=== PATIENT | male | born 1950 | race Caucasian/White ===

== ENCOUNTER 2021-01-26 08:13 | Inpatient (IN) ==
[2021-01-26 08:03] LABS: ABG ALLEN TEST POS; ABG HCO3 21.3 mmol/L (22-26)
[2021-01-26 08:09] LABS: BASOPHILS % (AUTO) 0.5 % (0.2-1.0); HEMATOCRIT 52.9 % (42.0-54.0); HEMOGLOBIN 18.6 g/dL (13.5-18.0); LYMPHOCYTES # (AUTO) 0.7 X10^3/uL (1.3-2.9); LYMPHOCYTES % (AUTO) 8.4 % (21.0-51.0); MEAN CORPUSCULAR HEMOGLOBIN 31.6 pg (27.0-34.0); MEAN CORPUSCULAR HGB CONC 35.1 g/dL (33.0-35.0); MEAN CORPUSCULAR VOLUME 90.1 fL (80.0-100.0); MEAN PLATELET VOLUME 9.2 fL (7.4-11.0); MONOCYTES % (AUTO) 11.6 % (0.0-13.0); NEUTROPHILS # (AUTO) 6.9 x10^3/uL (2.2-4.8); NEUTROPHILS % (AUTO) 79.5 % (42.0-75.0); PLATELET COUNT 118 X10^3/uL (150.0-450.0); RED BLOOD COUNT 5.87 X10^6/uL (4.7-6.0); RED CELL DISTRIBUTION WIDTH 16.1 % (11.6-16.5); WHITE BLOOD COUNT 8.6 X10^3/uL (3.6-10.0)
[~2021-01-26 08:13] MED LIST: REGEN-COV VIAL 10 ML, DRUG FILTER EXTENSION SET * 1 EA in NS 100 ML IV 100 ML IV ONE; SOLU-Medrol 125 MG VIAL IVP ONE; TYLENOL 325 MG TAB PO ONE
[2021-01-26] MEDS ORDERED: NS 1000 ML 1,000 ML IV ONE ×2 (08:17→10:05)
--- NOTE | 2021-01-26 08:26 | DR.GENAD ---
HPI Time Seen Time Seen by Provider: 01/26/21 08:15 PCP Primary Care Physician: kayla hoffman ARCHITECTURAL EXAMINER Complaint/Symptoms Chief Complaint Doctors Comments: 70 y/o male presented for Covid infusion, had difficulty getting out of the car. Per nursing staff, was cyanotic, in severe respiratory distress. Brought into ER, placed on NRB. Doing better, awake and alert. Initial pulse ox in the 50s on RA. Has had covid x 5 days or so. Has had cough, slight productive, having fever/chills/aches. Has been having diarrhea. No home O2. Did receive one vaccine at beginning of the month. Denies syncope, chest pain, N/V. COVID-19 Coronavirus risk:travel/contact w/high risk person: Yes Has patient experienced Coronavirus symptoms: Yes Nurses notes reviewed Nurses Notes Review: Yes Source History Provided: Patient Mode of Arrival Mode of Arrival: Wheelchair Timing Came on: Gradually Severity Severity: Severe Modifying Factors Worsens:: exertion Improves:: oxygen PMH Travel Risk Coronavirus risk:travel/contact w/high risk person: Yes ROS Review of Systems Constitutional: Chills, Fever, Malaise and Weakness Eyes: No Symptoms Reported ENTM: No Symptoms Reported Respiratoy: Productive Cough and Short of Breath Cardiovascular: No Symptoms Reported Gastrointestinal/Abdominal: Diarrhea Genitourinary: No Symptoms Reported Neurological: Weakness and Dizziness Musculoskeletal: Muscle Pain Integumentary: No Symptoms Reported Hematologic/Lymphatic: No Symptoms Reported Endocrine: No Symptoms Reported Psychiatric: No Symptoms Reported All Other Systems: Reviewed and Negative PE Vital Signs Vitals: Temperature 98.4 F Pulse Rate 85 Respiratory Rate 38 Blood Pressure 117/84 O2 Sat by Pulse Oximetry 95 General Limitations: No Limitations General Appearance: Alert and In Distress Head Head Exam: Normal Inspection Eyes Eye exam: Normal Appearance ENT ENT Exam: Normal Exam Neck Neck Exam: Normal Inspection and Full ROM Chest Chest Inspection: Normal Inspection Respiratory Respiratory Exam: Respiratory Distress and Other (decreased breath sounds at the bases) Cardiovascular Cardiovascular Exam: Regular Rate, Normal Rhythm and Normal Heart Sounds Abdominal Exam Abdominal Exam: Normal Inspection, Normal Bowel Sounds and Soft; negative Tenderness Extremities Extremities Exam: Normal Inspection, Full ROM and Tenderness Back Back Exam: Normal Inspection Neurologic Neurological Exam: Alert, Oriented X3 and CN II-XII Intact Psychiatric Psychiatric Exam: Normal Affect Skin Skin Exam: Warm and Dry COURSE Treatment Treatment: Pt doing better on O2 therapy, will change to high flow. CXR shows bilateral pneumonia changes. Labs overall acceptable, except for low pO2, 64 on 100%. Pt presented to the covering hospitalist, Dr. Wlikins, accepts the admission. Given solumedrol, azithromycin IV here. ROR Labs Reviewed Laboratory Results Reviewed?: Yes Result Diagrams: 01/26/21 07:56 01/26/21 07:56 Laboratory: WBC 8.6 X10^3/uL (3.6-10.0) 01/26/21 07:56 RBC 5.87 X10^6/uL (4.7-6.0) 01/26/21 07:56 Hgb 18.6 g/dL (13.5-18.0) H 01/26/21 07:56 Hct 52.9 % (42.0-54.0) 01/26/21 07:56 MCV 90.1 fL (80.0-100.0) 01/26/21 07:56 MCH 31.6 pg (27.0-34.0) 01/26/21 07:56 MCHC 35.1 g/dL (33.0-35.0) H 01/26/21 07:56 RDW 16.1 % (11.6-16.5) 01/26/21 07:56 Plt Count 118 X10^3/uL (150.0-450.0) L 01/26/21 07:56 MPV 9.2 fL (7.4-11.0) 01/26/21 07:56 Neut % (Auto) 79.5 % (42.0-75.0) H 01/26/21 07:56 Lymph % (Auto) 8.4 % (21.0-51.0) L 01/26/21 07:56 [place] % (Auto) 11.6 % (0.0-13.0) 01/26/21 07:56 Eos % (Auto) 0.0 % (0.9-2.9) L 01/26/21 07:56 Baso % (Auto) 0.5 % (0.2-1.0) 01/26/21 07:56 Neut # (Auto) 6.9 x10^3/uL (2.2-4.8) H 01/26/21 07:56 Lymph # (Auto) 0.7 X10^3/uL (1.3-2.9) L 01/26/21 07:56 [place] # (Auto) 1.0 x10^3/uL (0.3-0.8) H 01/26/21 07:56 Eos # (Auto) 0.0 x10^3/uL (0.0-0.2) 01/26/21 07:56 Baso # (Auto) 0.0 X10^3/uL (0.0-0.1) 01/26/21 07:56 Absolute Nucleated RBC 0.5 /100WBC 01/26/21 07:56 D-Dimer 0.59 ug/ml (0.0-0.57) H* 01/26/21 07:56 Sample Site Lr 01/26/21 07:59 ABG pH 7.490 (7.35-7.45) H 01/26/21 07:59 ABG pCO2 28.0 mmHg (35.0-45.0) L 01/26/21 07:59 ABG pO2 64.0 mmHg (80.0-100.0) L 01/26/21 07:59 ABG HCO3 21.3 mmol/L (22-26) L 01/26/21 07:59 ABG O2 Saturation 94.0 % (90-100) 01/26/21 07:59 ABG Base Excess -1.0 mmol/L (-2.0-2.0) 01/26/21 07:59 Francis Test Pos 01/26/21 07:59 A-a Gradient 614.0 mmHg 01/26/21 07:59 FiO2 100.0 01/26/21 07:59 Blood Gas Comments Kimberley well. sd 01/26/21 07:59 Sodium 136 mmol/L (136-145) 01/26/21 07:56 Corrected Sodium 137 mmol/L (136-145) 01/26/21 07:56 Potassium 4.4 mmol/L (3.5-5.1) 01/26/21 07:56 Chloride 100 mmol/L (98-107) 01/26/21 07:56 Carbon Dioxide 25.4 mmol/L (21-32) 01/26/21 07:56 BUN 41 mg/dL (7-18) H 01/26/21 07:56 Creatinine 2.01 mg/dL (0.70-1.30) H 01/26/21 07:56 Est GFR (MDRD) Af Amer 43 (>60) L 01/26/21 07:56 Est GFR (MDRD) Non-Af 35 (>60) L 01/26/21 07:56 Glucose 132 mg/dL (65-99) H 01/26/21 07:56 Lactic Acid 3.9 mmol/L (0.4-2.0) H 01/26/21 08:37 Calcium 8.6 mg/dL (8.5-10.1) 01/26/21 07:56 Corrected Calcium 9.5 mg/dL (8.5-10.1) 01/26/21 07:56 Ferritin 3928 ng/mL (26-388) H 01/26/21 07:56 Total Bilirubin 1.20 mg/dL (0.2-1.0) H 01/26/21 07:56 AST 110 Units/L (15-37) H 01/26/21 07:56 ALT 54 Units/L (12-78) 01/26/21 07:56 Alkaline Phosphatase 58 Units/L (46-116) 01/26/21 07:56 Creatine Kinase 432 Units/L (39-308) H 01/26/21 08:37 CK-MB (CK-2) 1.7 ng/mL (0-4.0) 01/26/21 08:37 CK/CKMB % Calc 0.4 % (<4) 01/26/21 08:37 Troponin I < 0.02 ng/mL (0-1.5) 01/26/21 08:37 C-Reactive Protein 91.10 mg/L (0-3.0) H 01/26/21 07:56 B-Natriuretic Peptide 12.5 pg/mL (0-79) 01/26/21 07:56 Total Protein 6.8 g/dL (6.4-8.2) 01/26/21 07:56 Albumin 2.9 g/dL (3.4-5.0) L 01/26/21 07:56 Globulin 3.9 g/dL (2.5-4.5) 01/26/21 07:56 Albumin/Globulin Ratio 0.7 Ratio (1.1-2.1) L 01/26/21 07:56 XRAY XRAY Interpreted by: Both X-ray Results: + bilateral increased opacifications Opioid Opioid Risk Tool Age (Marcelo box if 16-45): No History of Preadolescent Sexual Abuse: No Total: 0 Total Score Risk Category: Low Risk Copyright: Nirmal HINDS predicting aberrant behaviors Diagnosis Discharge Problem: Pneumonia due to COVID-19 virus, Hypoxia Instructions Forms: Precautions for COVID19 [facility] Regen-Cov Social Distancing
[2021-01-26 08:30] LABS: ALBUMIN 2.9 g/dL (3.4-5.0); CALCIUM 8.6 mg/dL (8.5-10.1); CARBON DIOXIDE 25.4 mmol/L (21-32); COR CA(FOR HYPOALB) 9.5 mg/dL (8.5-10.1); CREATININE 2.01 mg/dL (0.70-1.30); TOTAL PROTEIN 6.8 g/dL (6.4-8.2)
--- NOTE | 2021-01-26 08:46 | RAD ---
HISTORYCOVID/ O2 50 ON ROOM AIRSTUDYCHEST, 1 VIEWCOMPARISONNoneFINDINGSThere are focal areas of opacity mostly involving the right lung but also in the lower lateral left lung. The distribution suggest bronchopneumonia.No pleural effusion or pneumothorax.Heart size is normal.Bones are unremarkable.EKG leads are noted.IMPRESSION1. Findings suggesting bronchopneumoniaElectronically signed by: Sang Flores (Jan 26, 2021 08:44:36)
[2021-01-26] MEDS ORDERED: NS 1000 ML 1,000 ML ONE ×2 (09:05→10:09)
[2021-01-26 09:29] LABS: CKMB % 0.4 % (<4); CREATINE KINASE 432 Units/L (39-308); CREATINE KINASE MB 1.7 ng/mL (0-4.0); TROPONIN I < 0.02 ng/mL (0-1.5)
[2021-01-26 09:38] LABS: LACTIC ACID 3.9 mmol/L (0.4-2.0)
[2021-01-26] MEDS ORDERED: ZITHROMAX INJ 500 MG VIAL 500 MG in NS 250 ML IV 250 ML IV SCH (10:06)
[2021-01-26] MEDS ORDERED: SOLU-Medrol 125 MG VIAL IVP ONE (10:06)
[2021-01-26] MEDS ORDERED: ZITHROMAX INJ 500 MG VIAL IV ONE (10:22)
[2021-01-26] MEDS ORDERED: NS 250 ML IV 250 ML IV ONE (10:23)
[2021-01-26] MEDS ORDERED: REMDESIVIR 200 MG in NS 250 ML IV 250 ML IV ONE (10:27)
[2021-01-26] MEDS: ZITHROMAX INJ 500 MG VIAL 500 MG in NS 250 ML IV 250 ML IV SCH (11:30)
[2021-01-26] MEDS: NS 1000 ML 1,000 ML IV SCH ×2 (13:00→21:00)
[2021-01-26] MEDS: SOLU-Medrol 40 MG VIAL IVP SCH ×2 (15:00→21:00)
[2021-01-26] MEDS: ASCORBIC ACID INJ MULTI-DOSE VIAL 1,500 MG in NS 100 ML IV 100 ML IV SCH ×2 (15:31→21:00)
[2021-01-26 16:19] VITALS: BMI 28.8
[2021-01-26] MEDS ORDERED: ZINC SULFATE PO SCH (21:00)
[2021-01-26] MEDS: PEPCID TAB 40 MG PO SCH (21:00)
[2021-01-26] MEDS: ROBITUSSIN DM PO PRN (21:00)
[2021-01-26] MEDS: LOVENOX INJ 30 MG SYR SC SCH (21:00)
[2021-01-26] MEDS: RESTORIL CAP 15 MG PO PRN (22:00)
[2021-01-26] MEDS: BROVANA IN SCH (22:15)
[2021-01-26] MEDS: PULMICORT NEB TX 0.5 MG NEB SCH (22:15)
[2021-01-27] MEDS: ASCORBIC ACID INJ MULTI-DOSE VIAL 1,500 MG in NS 100 ML IV 100 ML IV SCH ×4 (03:22→20:32)
[2021-01-27] MEDS: SOLU-Medrol 40 MG VIAL IVP SCH ×3 (05:29→21:16)
[2021-01-27 06:29] LABS: BASOPHILS % (AUTO) 0.2 % (0.2-1.0); HEMATOCRIT 46.8 % (42.0-54.0); HEMOGLOBIN 16.3 g/dL (13.5-18.0); LYMPHOCYTES # (AUTO) 0.5 X10^3/uL (1.3-2.9); MEAN CORPUSCULAR HEMOGLOBIN 31.3 pg (27.0-34.0); MEAN CORPUSCULAR HGB CONC 34.7 g/dL (33.0-35.0); MEAN CORPUSCULAR VOLUME 90.2 fL (80.0-100.0); MEAN PLATELET VOLUME 9.2 fL (7.4-11.0); MONOCYTES # (AUTO) 0.3 x10^3/uL (0.3-0.8); MONOCYTES % (AUTO) 5.7 % (0.0-13.0); NEUTROPHILS # (AUTO) 3.8 x10^3/uL (2.2-4.8); NEUTROPHILS % (AUTO) 84.1 % (42.0-75.0); PLATELET COUNT 104 X10^3/uL (150.0-450.0); RED BLOOD COUNT 5.19 X10^6/uL (4.7-6.0); RED CELL DISTRIBUTION WIDTH 16.3 % (11.6-16.5); WHITE BLOOD COUNT 4.5 X10^3/uL (3.6-10.0)
[2021-01-27 06:29] LABS: ABG BASE EXCESS 0.1 mmol/L (-2.0-2.0); ABG HCO3 24.7 mmol/L (22-26)
[2021-01-27 06:32] LABS: ABG ALLEN TEST POS
[2021-01-27 06:39] LABS: ALANINE AMINOTRANSFERASE 51 Units/L (12-78); ALBUMIN 2.4 g/dL (3.4-5.0); ALKALINE PHOSPHATASE 49 Units/L (46-116); ASPARTATE AMINO TRANSFERASE 94 Units/L (15-37); BLOOD UREA NITROGEN 32 mg/dL (7-18); CALCIUM 7.9 mg/dL (8.5-10.1); CARBON DIOXIDE 28.9 mmol/L (21-32); CHLORIDE 103 mmol/L (98-107); COR CA(FOR HYPOALB) 9.2 mg/dL (8.5-10.1); COR NA(FOR HYPERGLY) 139 mmol/L (136-145); CREATININE 1.16 mg/dL (0.70-1.30); SODIUM 138 mmol/L (136-145); TOTAL PROTEIN 5.9 g/dL (6.4-8.2); eGFR NON BLACK RACES > 60 (>60)
[2021-01-27 06:58] LABS: PLATELET MORPHOLOGY COMMENT NORMAL (NORMAL)
[2021-01-27] MEDS ORDERED: REMDESIVIR IV ONE (07:45)
[2021-01-27] MEDS ORDERED: ZINC SULFATE ONE (07:46)
[2021-01-27] MEDS ORDERED: TRICOR TAB 160 MG ONE (07:46)
[2021-01-27] MEDS ORDERED: VITAMIN D3 125 mcg (5,000 UNITS) ONE (07:46)
[2021-01-27] MEDS ORDERED: ZITHROMAX INJ 500 MG VIAL IV ONE (07:46)
--- NOTE | 2021-01-27 08:03 | RAD ---
HISTORYPNEUMONIASTUDYCHEST, 1 [id number]/09/2021FINDINGSSubtle abnormal opacity in the right lung and probably left perihilar region could be pneumonia. There may be a slight improvement from yesterday.Lungs are better inflated than previously.No pleural effusion or pneumothorax.Heart size is normal.Bones are unremarkable.EKG leads are noted.IMPRESSION1. Improved aeration2. Improved pneumoniaElectronically signed by: Sang Flores (Jan 27, 2021 08:01:56)
[2021-01-27] MEDS: BROVANA IN SCH ×2 (08:15→21:11)
[2021-01-27] MEDS: PULMICORT NEB TX 0.5 MG NEB SCH ×2 (08:15→21:11)
[2021-01-27] MEDS ORDERED: VITAMIN D (1.25MG) PO SCH (09:00)
[2021-01-27] MEDS ORDERED: VITAMIN A PO SCH (09:00)
[2021-01-27] MEDS: LOVENOX INJ 30 MG SYR SC SCH (09:26)
[2021-01-27] MEDS: REMDESIVIR 100 MG in NS 100 ML IV + SPIKE MINIBAG* 120 ML IV SCH (09:27)
[2021-01-27] MEDS: PEPCID TAB 40 MG PO SCH ×2 (09:27→20:32)
[2021-01-27] MEDS: ROBITUSSIN DM PO PRN (09:28)
[2021-01-27] MEDS: TRICOR TAB 160 MG PO SCH (09:28)
[2021-01-27] MEDS: ZITHROMAX INJ 500 MG VIAL 500 MG in NS 250 ML IV 250 ML IV SCH (09:33)
[2021-01-27] MEDS: NS 1000 ML 1,000 ML IV SCH (10:44)
[2021-01-27] MEDS ORDERED: TUSSIONEX PENNKINETIC SUSP PO ONE (10:58)
[2021-01-27] MEDS ORDERED: LEVSIN/MAALOX/LIDOC VISC PO ONE (10:59)
[2021-01-27] MEDS ORDERED: PHARMACY CONSULT - LOVENOX XX SCH (11:00)
[2021-01-27 12:11] LABS: CKMB % 1.7 % (<4); CREATINE KINASE 286 Units/L (39-308); TROPONIN I < 0.02 ng/mL (0-1.5)
[2021-01-27 12:16] LABS: CREATINE KINASE MB 4.9 ng/mL (0-4.0)
--- NOTE | 2021-01-27 14:47 | DR.H&P ---
H&P - History & Physical for Day of: H&P Date: 01/26/21 - Chief Complaint Chief Complaint: SOB, COVID 19 - History of Present Illness History of Present Illness: 70 y/o male presented for Covid infusion, had difficulty getting out of the car. Per nursing staff, was cyanotic, in severe respiratory distress. Brought into ER, placed on NRB. Doing better, awake and alert. Initial pulse ox in the 50s on RA. Has had covid x 5 days or so. Has had cough, slight productive, having fever/chills/aches. Has been having diarrhea. No home O2. Did receive one vaccine at beginning of the month. Denies syncope, chest pain, N/V. - Past Medical History Past Medical History: Arthritis, Hypertension - Social History Does patient currently use any type of tobacco product: No Have you used tobacco products in the last 12 months: No Type of Tobacco Use: None Does any household member use tobacco: No Alcohol Use: None Drug Use: None - Medications Home Medications: No Known Drug Allergies Allergy (Verified 01/26/21 08:28) CONTINUE taking the following medications atorvastatin 20 mg PO HS 01/26/21 [History] doxycycline hyclate 100 mg PO BID 01/26/21 [History] eszopiclone 3 mg PO HS 01/26/21 [History] folic acid 1 mg PO DAILY 01/26/21 [History] methotrexate sodium 15 mg PO WEEKLY 01/26/21 [History] ondansetron HCl 4 mg PO Q6H PRN 01/26/21 [History] pantoprazole 40 mg PO DAILY 01/26/21 [History] prednisone 5 mg PO DAILY PRN 01/26/21 [History] ropinirole 2 mg PO HS 01/26/21 [History] tramadol 50 mg PO BID PRN 01/26/21 [History] - Review of Systems Constitutional: Weakness Eyes: No Symptoms Reported ENT: No Symptoms Reported Respiratory: Cough, Shortness of Breath, SOB with Excertion Cardiovascular: Chest Pain Gastrointestinal: Nausea, Vomiting, Diarrhea Genitourinary: No Symptoms Reported Musculoskeletal: No Symptoms Reported Skin: No Symptoms Reported Neurological: No Symptoms Reported - Physical Exam Vital Signs: Temperature 97.0 F Pulse Rate [Right Brachial] 62 Pulse Rate 84 Respiratory Rate 20 Blood Pressure [Right Arm] 125/70 Blood Pressure 105/66 O2 Sat by Pulse Oximetry 95 Oriented: Normal Eyes: Normal Ear: Normal Nose: Normal Throat: Normal Respiratory: RML Diminished, RLL Diminished, LML Diminished, LLL Diminished Cardiovascular: Normal. negative: Edema : Normal Auscultation: Bowel Sounds: Normal Palpation: Normal Tenderness: Normal Skin: Decreased Turgur Musculoskeletal: Back:Lumbar Psychiatric: Anxiety Affect: Anxious Speech Pattern: Clear, Appropriate - Assessment/Plan (1) Pneumonia due to COVID-19 virus Status: Acute Plan: ADMIT, SUPPLMENTAL O2. IV ATBX, REMDESIVIR, SOLU MEDROL. IV HYDRATION. STRICT I&OS, CARDIAC MONITORING. AM, ABG, CXR (2) Hypoxia Status: Acute - Allergies Allergies/Adverse Reactions: Allergies Allergy/AdvReac Type Severity Reaction Status Date / Time No Known Drug Allergies Allergy Verified 01/26/21 08:28
[2021-01-27 14:54] LABS: ABG BASE EXCESS 1.1 mmol/L (-2.0-2.0); ABG HCO3 25.1 mmol/L (22-26)
[2021-01-27] MEDS: REQUIP PO SCH (20:32)
[2021-01-27] MEDS: LIPITOR TAB 20 MG PO SCH (20:32)
[2021-01-27] MEDS: LOVENOX INJ 100 MG SYR SC SCH (20:32)
[2021-01-27] MEDS: RESTORIL CAP 15 MG PO PRN (20:45)
[2021-01-27] MEDS ORDERED: NS 100 ML IV 100 ML ONE (22:18)
--- NOTE | 2021-01-27 23:26 | CT ---
HISTORYHYPOXIA, COVID+ INCREASED SOBSTUDYCTA CHESTCOMPARISONChest radiograph 01/27/2021TECHNIQUEMultiple axial images of the chest were obtained from the thoracic inlet to the upper abdomen after the administration of IV contrast. 3D reconstructions utilizing axial MIPS imaging was performed and reviewed. Dose reduction techniques including Automated Exposure Control (AEC) and adjustment of mA and kV were utilized.FINDINGSThe mediastinum does not demonstrate significant pathological lymphadenopathy. There is no paracardial effusion observed. The thoracic aorta is normal in its contour without evidence for aneurysmal dilatation. The central pulmonary arterial system does not demonstrate central filling defects to suggest pulmonary emboli.Evaluation of the lung parenchyma demonstrates marked emphysematous changes throughout the lungs. Patchy parenchymal opacities within both lower lobes. There is extensive pneumomediastinum and subcutaneous emphysema involving the anterior chest supraclavicular regions and base of the neck. There is a small right and moderate-sized left pneumothorax.. No pulmonary nodule or mass can be identified. The bony thorax is unremarkable in its appearance . The visualized portions of the upper abdomen are grossly unremarkable .IMPRESSIONUnremarkable CTA of the thoracic aorta and pulmonary arteries.Small right and moderate-sized left pneumothoraces. Extensive pneumomediastinum and subcutaneous emphysema, new from previous 01/27/2021.Marked emphysematous changes throughout the lungs with patchy parenchymal opacities within both lower lobes consistent with multifocal pneumonia.COMMUNICATIONS: These findings were discussed with patient's nurse at 11:22 p.m. 01/27/2021 by Radiology call manager product support.Electronically signed by: Eyal Davis (Jan 27, 2021 23:24:23)
[2021-01-28] MEDS: ASCORBIC ACID INJ MULTI-DOSE VIAL 1,500 MG in NS 100 ML IV 100 ML IV SCH ×4 (02:46→20:36)
[2021-01-28 05:00] LABS: ABG ALLEN TEST POS; ABG HCO3 26.5 mmol/L (22-26)
[2021-01-28] MEDS: SOLU-Medrol 40 MG VIAL IVP SCH ×3 (05:12→21:00)
[2021-01-28] MEDS: NS 1000 ML 1,000 ML IV SCH ×2 (05:44→18:25)
[2021-01-28 06:38] LABS: BASOPHILS % (AUTO) 0.2 % (0.2-1.0); HEMATOCRIT 42.7 % (42.0-54.0); HEMOGLOBIN 14.7 g/dL (13.5-18.0); LYMPHOCYTES # (AUTO) 0.4 X10^3/uL (1.3-2.9); LYMPHOCYTES % (AUTO) 3.4 % (21.0-51.0); MEAN CORPUSCULAR HEMOGLOBIN 30.7 pg (27.0-34.0); MEAN CORPUSCULAR HGB CONC 34.4 g/dL (33.0-35.0); MEAN CORPUSCULAR VOLUME 89.4 fL (80.0-100.0); MEAN PLATELET VOLUME 10.2 fL (7.4-11.0); MONOCYTES # (AUTO) 0.6 x10^3/uL (0.3-0.8); MONOCYTES % (AUTO) 4.9 % (0.0-13.0); NEUTROPHILS # (AUTO) 10.8 x10^3/uL (2.2-4.8); NEUTROPHILS % (AUTO) 91.5 % (42.0-75.0); PLATELET COUNT 141 X10^3/uL (150.0-450.0); RED BLOOD COUNT 4.78 X10^6/uL (4.7-6.0); RED CELL DISTRIBUTION WIDTH 16.2 % (11.6-16.5); WHITE BLOOD COUNT 11.8 X10^3/uL (3.6-10.0)
[2021-01-28 06:47] LABS: ALANINE AMINOTRANSFERASE 45 Units/L (12-78); ALBUMIN 2.3 g/dL (3.4-5.0); ALKALINE PHOSPHATASE 47 Units/L (46-116); ASPARTATE AMINO TRANSFERASE 71 Units/L (15-37); BLOOD UREA NITROGEN 31 mg/dL (7-18); CARBON DIOXIDE 28.1 mmol/L (21-32); CHLORIDE 106 mmol/L (98-107); COR CA(FOR HYPOALB) 9.4 mg/dL (8.5-10.1); COR NA(FOR HYPERGLY) 142 mmol/L (136-145); CREATININE 0.99 mg/dL (0.70-1.30); SODIUM 141 mmol/L (136-145); TOTAL PROTEIN 5.4 g/dL (6.4-8.2); eGFR NON BLACK RACES > 60 (>60)
--- NOTE | 2021-01-28 08:31 | RAD ---
HISTORYCOVID-19 pneumoniaSTUDYPortable AP [id number]/10/2021FINDINGSNormal heart size. Diffuse bilateral airspace disease has increased. There is now noted subcutaneous emphysema and pneumomediastinum. A small left apical pneumothorax is observed. No pleural fluid is seen.IMPRESSIONIncreasing bilateral pneumonia with interval appearance of subcutaneous emphysema, pneumomediastinum and small left pneumothorax.Electronically signed by: BERTHA TOLENTINO (Jan 28, 2021 08:29:48)
[2021-01-28 08:45] LABS: PLATELET MORPHOLOGY COMMENT NORMAL (NORMAL)
[2021-01-28] MEDS ORDERED: LASIX IVP ONE (09:14)
[2021-01-28] MEDS: PEPCID TAB 40 MG PO SCH ×2 (09:45→20:36)
[2021-01-28] MEDS: VITAMIN D3 125 mcg (5,000 UNITS) PO SCH (09:45)
[2021-01-28] MEDS: VITAMIN A PO SCH (09:45)
[2021-01-28] MEDS: LOVENOX INJ 100 MG SYR SC SCH ×2 (09:45→20:36)
[2021-01-28] MEDS: TRICOR TAB 160 MG PO SCH (09:45)
[2021-01-28] MEDS: BROVANA IN SCH ×2 (10:13→20:45)
[2021-01-28] MEDS: PULMICORT NEB TX 0.5 MG NEB SCH ×2 (10:13→20:45)
[2021-01-28] MEDS: ZITHROMAX INJ 500 MG VIAL 500 MG in NS 250 ML IV 250 ML IV SCH (10:45)
[2021-01-28] MEDS ORDERED: BENADRYL INJ 50 MG VIAL IVP ONE (12:24)
[2021-01-28] MEDS: REMDESIVIR 100 MG in NS 100 ML IV + SPIKE MINIBAG* 120 ML IV SCH (12:45)
[2021-01-28] MEDS: ULTRAM PO PRN ×3 (12:46→20:39)
--- NOTE | 2021-01-28 15:13 | RAD ---
EXAM: CHEST X-RAYHISTORY: Follow-up pneumonia.TECHNIQUE: AP chest x-ray dated January 28, 2021 at 1:04 PM.COMPARISON: CXR dated January 28, 2021 at 5:30 AM.FINDINGS:There is interval development of an approximately 15% right pneumothorax. No pleural effusion is seen. There is extensive stable pneumomediastinum, soft tissue neck emphysema, and soft tissue chest emphysema which may represent air leak; DDx includes sequela of a perforated viscus (such as the esophagus or trachea, but cannot rule out infectious process with gas producing organism in the appropriate clinical setting. Clinical correlation is advised.There is stable appearance of diffuse bilateral, especially in the middle and lower lung clemens, in keeping with bronchitis and interstitial pneumonia (e.g. Covid pneumonia) in the appropriate clinical setting; DDX includes mild noncardiogenic pulmonary congestion in the appropriate clinical setting. Clinical correlation is advised.The heart size and mediastinum are otherwise within normal limits. The visualized bony structures are within normal limits.IMPRESSION:1. Interval development of an approximately 15% right pneumothorax.2. Extensive stable pneumomediastinum, soft tissue neck emphysema, and soft tissue chest emphysema which may represent air leak; DDx includes sequela of a perforated viscus (such as the esophagus or trachea, but cannot rule out infectious process with gas producing organism in the appropriate clinical setting. Clinical correlation is advised.3. Recommend clinical correlation and appropriate follow-up x-ray to ensure interval clearance.4. Consider follow-up evaluation with noncontrast chest CT for further assessment as clinically warranted.Electronically signed by: Klaus Eng (Jan 28, 2021 15:11:23)
[2021-01-28] MEDS: REQUIP PO SCH (20:36)
[2021-01-28] MEDS: RESTORIL CAP 15 MG PO PRN (20:37)
[2021-01-28] MEDS: LIPITOR TAB 20 MG PO SCH (20:37)
--- NOTE | 2021-01-28 22:20 | DR.CONSULT ---
CONSULT Consultation for Day of: Date: 01/28/21 Chief Complaint Chief Complaint: Patient with Covid pneumonia currently on BiPAP. CT scan of chest and corresponding chest x-ray shows new mediastinum and evidence of bilateral pneumothoraces. Patient not intubated. Stable hemodynamically. Allergies Allergies Allergy/AdvReac Type Severity Reaction Status Date / Time No Known Drug Allergies Allergy Verified 01/26/21 08:28 History of Present Illness History of Present Illness: See above. Patient with positive Covid diagnosis who presented for infusion of antibodies but had increasing cyanosis, respiratory distress and shortness of breath. Chest x-ray consistent with Covid pneumonia. Patient admitted to the ICU. Past Medical History Past Medical History: Arthritis and Hypertension Social History Does patient currently use any type of tobacco product: No Have you used tobacco products in the last 12 months: No Type of Tobacco Use: None Does any household member use tobacco: No Alcohol Use: None Drug Use: None Medications Home Medications: No Known Drug Allergies Allergy (Verified 01/26/21 08:28) CONTINUE taking the following medications atorvastatin 20 mg PO HS 01/26/21 [History] doxycycline hyclate 100 mg PO BID 01/26/21 [History] eszopiclone 3 mg PO HS 01/26/21 [History] folic acid 1 mg PO DAILY 01/26/21 [History] methotrexate sodium 15 mg PO WEEKLY 01/26/21 [History] ondansetron HCl 4 mg PO Q6H PRN 01/26/21 [History] pantoprazole 40 mg PO DAILY 01/26/21 [History] prednisone 5 mg PO DAILY PRN 01/26/21 [History] ropinirole 2 mg PO HS 01/26/21 [History] tramadol 50 mg PO BID PRN 01/26/21 [History] Review of Systems Constitutional: Other (Patient is resting quietly on BiPAP. No complaints.Patient is tachypneic with stable vital signs.) Physical Exam Vital Signs: Temperature 97.4 F Pulse Rate [Right Brachial] 69 Pulse Rate 62 Respiratory Rate 35 Blood Pressure [Right Arm] 135/76 Blood Pressure 105/66 O2 Sat by Pulse Oximetry 94 Oriented: Unable to test Eyes: Normal Ear: Normal Nose: Normal Respiratory: Rhonchi Throughout Cardiovascular: Other (The patient has crepitus of both sides of his chest.) : Normal Auscultation: Bowel Sounds: Normal Palpation: Normal Tenderness: Normal Skin: Normal Musculoskeletal: Normal Psychiatric: Other (cannot assess) Plan Plan: Patient with Covid pneumonia and evidence of small bilateral pneumothoraces and the mediastinum. There is evidence of crepitus to both sides of the chest. At this point I would not place chest tubes. If he is placed on a ventilator it might become necessary however with Covid pneumonia his lungs are dense and it is unlikely that both will fully collapse. 30 mediastinum can occur from the pneumothoraces but must consider possible esophageal pathology. Recommend he be NPO and obtain Gastrografin swallow prior to feeding him.
[2021-01-29] MEDS: BENADRYL INJ 50 MG VIAL IVP PRN (00:32)
[2021-01-29] MEDS: ASCORBIC ACID INJ MULTI-DOSE VIAL 1,500 MG in NS 100 ML IV 100 ML IV SCH ×4 (03:41→21:15)
[2021-01-29 03:47] LABS: ABG BASE EXCESS 6.7 mmol/L (-2.0-2.0)
[2021-01-29 03:48] LABS: ABG ALLEN TEST POS; ABG HCO3 30.4 mmol/L (22-26)
[2021-01-29 05:44] LABS: BASOPHILS % (AUTO) 0.1 % (0.2-1.0); HEMOGLOBIN 13.8 g/dL (13.5-18.0); LYMPHOCYTES # (AUTO) 0.2 X10^3/uL (1.3-2.9); MEAN CORPUSCULAR HEMOGLOBIN 30.9 pg (27.0-34.0); MEAN CORPUSCULAR HGB CONC 34.6 g/dL (33.0-35.0); MEAN CORPUSCULAR VOLUME 89.2 fL (80.0-100.0); MEAN PLATELET VOLUME 9.5 fL (7.4-11.0); MONOCYTES # (AUTO) 0.7 x10^3/uL (0.3-0.8); MONOCYTES % (AUTO) 4.2 % (0.0-13.0); NEUTROPHILS # (AUTO) 15.9 x10^3/uL (2.2-4.8); NEUTROPHILS % (AUTO) 94.7 % (42.0-75.0); PLATELET COUNT 180 X10^3/uL (150.0-450.0); RED BLOOD COUNT 4.48 X10^6/uL (4.7-6.0); RED CELL DISTRIBUTION WIDTH 16.3 % (11.6-16.5); WHITE BLOOD COUNT 16.8 X10^3/uL (3.6-10.0)
[2021-01-29 05:59] LABS: ALANINE AMINOTRANSFERASE 41 Units/L (12-78); ALBUMIN 2.2 g/dL (3.4-5.0); ALKALINE PHOSPHATASE 48 Units/L (46-116); ASPARTATE AMINO TRANSFERASE 62 Units/L (15-37); BLOOD UREA NITROGEN 30 mg/dL (7-18); CALCIUM 7.9 mg/dL (8.5-10.1); CARBON DIOXIDE 32.6 mmol/L (21-32); CHLORIDE 110 mmol/L (98-107); COR CA(FOR HYPOALB) 9.3 mg/dL (8.5-10.1); COR NA(FOR HYPERGLY) 148 mmol/L (136-145); CREATININE 0.91 mg/dL (0.70-1.30); SODIUM 147 mmol/L (136-145); TOTAL PROTEIN 5.1 g/dL (6.4-8.2); eGFR NON BLACK RACES > 60 (>60)
[2021-01-29] MEDS: NS 1000 ML 1,000 ML IV SCH (06:38)
[2021-01-29] MEDS: SOLU-Medrol 40 MG VIAL IVP SCH ×3 (06:38→21:16)
[2021-01-29 06:44] LABS: BAND NEUTROPHILS % 1 % (0-10); PLATELET MORPHOLOGY COMMENT NORMAL (NORMAL)
--- NOTE | 2021-01-29 07:53 | RAD ---
HISTORYCOVID-19STUDYPortable AP [id number]/11/2021FINDINGSContinued normal heart size with similar appearance of bilateral pne umonia. Persistent subcutaneous emphysema, pneumomediastinum and 15 percent right pneumothorax withou t tension effect.IMPRESSIONNo change, see above.Electronically signed by: BERTHA TOLENTINO (Jan 29 07:51:04)
[2021-01-29] MEDS: VITAMIN A PO SCH (09:11)
[2021-01-29] MEDS: TRICOR TAB 160 MG PO SCH (09:12)
[2021-01-29] MEDS: PEPCID TAB 40 MG PO SCH (09:12)
[2021-01-29] MEDS: VITAMIN D3 125 mcg (5,000 UNITS) PO SCH (09:12)
[2021-01-29] MEDS: LOVENOX INJ 100 MG SYR SC SCH ×2 (09:13→21:16)
[2021-01-29] MEDS: PULMICORT NEB TX 0.5 MG NEB SCH ×2 (09:42→21:00)
[2021-01-29] MEDS: BROVANA IN SCH ×2 (09:42→21:00)
[2021-01-29] MEDS: REMDESIVIR 100 MG in NS 100 ML IV + SPIKE MINIBAG* 120 ML IV SCH (10:50)
[2021-01-29] MEDS ORDERED: NS 1/2 1000 ML IV 1,000 ML IV ONE (11:31)
[2021-01-29] MEDS: NS 1/2 1000 ML IV 1,000 ML IV SCH (12:12)
[2021-01-29] MEDS: PROTONIX INJ 40 MG VIAL IVP SCH ×2 (12:13→21:16)
[2021-01-29] MEDS: ZITHROMAX INJ 500 MG VIAL 250 MG in D5W 250 ML IV 250 ML IV SCH (12:13)
[2021-01-29] MEDS ORDERED: NS 100 ML IV 100 ML ONE (13:44)
[2021-01-29] MEDS: ZOSYN VIAL 3.375 GRAMS 3.375 G in NS 100 ML IV + SPIKE MINIBAG* 100 ML IV SCH ×3 (14:16→21:16)
--- NOTE | 2021-01-29 15:36 | NOTE.SOAP ---
Soap Note Note for Day of Date of Exam: 01/29/21 Subjective Data Subjective Data: Clinically unchanged.Not intubated. Objective Data Temperature: 97.8 F Pulse Rate: 80 Respiratory Rate: 23 Blood Pressure: 142/65 O2 Sat by Pulse Oximetry: 98 Objective Data: On high flow oxygen, CXR still with b/l pneu monia, pneumomediastinum, 15 % right sided pneumothorax and subcutaneous vair, unchanged . Assessment Assessment: Covid pneumonia with pneumonthorax and pneumomediastinum. Plan Plan: Continue to observe
[2021-01-29] MEDS: RESTORIL CAP 15 MG PO PRN (21:00)
[2021-01-29] MEDS: COLACE CAP 100 MG PO SCH (21:15)
[2021-01-29] MEDS: LIPITOR TAB 20 MG PO SCH (21:15)
[2021-01-29] MEDS: MILK OF MAGNESIA PO SCH (21:16)
[2021-01-29] MEDS: REQUIP PO SCH (21:16)
[2021-01-30] MEDS: NS 1/2 1000 ML IV 1,000 ML IV SCH (00:39)
[2021-01-30] MEDS: ASCORBIC ACID INJ MULTI-DOSE VIAL 1,500 MG in NS 100 ML IV 100 ML IV SCH ×4 (02:43→21:33)
[2021-01-30] MEDS: BENADRYL INJ 50 MG VIAL IVP PRN ×2 (03:25→23:00)
[2021-01-30 04:58] LABS: BASOPHILS # (AUTO) 0.2 X10^3/uL (0.0-0.1); HEMATOCRIT 41.1 % (42.0-54.0); HEMOGLOBIN 13.9 g/dL (13.5-18.0); LYMPHOCYTES # (AUTO) 0.2 X10^3/uL (1.3-2.9); LYMPHOCYTES % (AUTO) 1.2 % (21.0-51.0); MEAN CORPUSCULAR HEMOGLOBIN 30.7 pg (27.0-34.0); MEAN CORPUSCULAR HGB CONC 33.8 g/dL (33.0-35.0); MEAN CORPUSCULAR VOLUME 90.8 fL (80.0-100.0); MEAN PLATELET VOLUME 9.3 fL (7.4-11.0); MONOCYTES # (AUTO) 0.4 x10^3/uL (0.3-0.8); MONOCYTES % (AUTO) 2.2 % (0.0-13.0); NEUTROPHILS # (AUTO) 18.7 x10^3/uL (2.2-4.8); NEUTROPHILS % (AUTO) 95.6 % (42.0-75.0); PLATELET COUNT 193 X10^3/uL (150.0-450.0); RED BLOOD COUNT 4.53 X10^6/uL (4.7-6.0); RED CELL DISTRIBUTION WIDTH 16.6 % (11.6-16.5); WHITE BLOOD COUNT 19.5 X10^3/uL (3.6-10.0)
[2021-01-30 05:01] LABS: ABG BASE EXCESS 8.3 mmol/L (-2.0-2.0)
[2021-01-30 05:02] LABS: ABG ALLEN TEST POS; ABG HCO3 31.8 mmol/L (22-26)
[2021-01-30 05:16] LABS: ALANINE AMINOTRANSFERASE 48 Units/L (12-78); ALBUMIN 2.1 g/dL (3.4-5.0); ALKALINE PHOSPHATASE 54 Units/L (46-116); ASPARTATE AMINO TRANSFERASE 69 Units/L (15-37); BLOOD UREA NITROGEN 25 mg/dL (7-18); CALCIUM 8.1 mg/dL (8.5-10.1); CARBON DIOXIDE 31.7 mmol/L (21-32); CHLORIDE 112 mmol/L (98-107); COR CA(FOR HYPOALB) 9.6 mg/dL (8.5-10.1); COR NA(FOR HYPERGLY) 150 mmol/L (136-145); CREATININE 1.02 mg/dL (0.70-1.30); SODIUM 149 mmol/L (136-145); TOTAL PROTEIN 5.3 g/dL (6.4-8.2); eGFR NON BLACK RACES > 60 (>60)
[2021-01-30 05:36] LABS: BAND NEUTROPHILS % 8 % (0-10); PLATELET MORPHOLOGY COMMENT NORMAL (NORMAL)
[2021-01-30] MEDS: ZOSYN VIAL 3.375 GRAMS 3.375 G in NS 100 ML IV + SPIKE MINIBAG* 100 ML IV SCH ×3 (05:42→21:35)
[2021-01-30] MEDS: SOLU-Medrol 40 MG VIAL IVP SCH ×3 (05:42→21:34)
--- NOTE | 2021-01-30 07:46 | RAD ---
HISTORYCOVID-19STUDYAP [id number]/12/2021FINDINGSContinued normal heart size. Stable appearance of left-sided infiltr ates. Increasing right hilar consolidation. Diminishing subcutaneous emphysema and pneumomediastinum. No significant pneumothorax now seen.IMPRESSIONInterval resolution right pneumothorax. Improving ext rapulmonary air collections. Persistent bilateral infiltrates/pneumonia with slight progression of ai rspace involvement in the right perihilar area.Electronically signed by: BERTHA TOLENTINO (Jan 30, 2021 07:45:14)
[2021-01-30] MEDS: LOVENOX INJ 100 MG SYR SC SCH ×2 (09:08→21:33)
[2021-01-30] MEDS: VITAMIN D3 125 mcg (5,000 UNITS) PO SCH (09:09)
[2021-01-30] MEDS: ZITHROMAX INJ 500 MG VIAL 250 MG in D5W 250 ML IV 250 ML IV SCH (09:09)
[2021-01-30] MEDS: VITAMIN A PO SCH (09:09)
[2021-01-30] MEDS: TRICOR TAB 160 MG PO SCH (09:10)
[2021-01-30] MEDS: PROTONIX INJ 40 MG VIAL IVP SCH ×2 (09:11→21:34)
[2021-01-30] MEDS ORDERED: D5W 1000 ML IV 1,000 ML IV ONE (09:18)
[2021-01-30] MEDS: D5W 1000 ML IV 1,000 ML IV SCH ×2 (09:50→21:34)
[2021-01-30] MEDS: PULMICORT NEB TX 0.5 MG NEB SCH ×2 (10:05→20:28)
[2021-01-30] MEDS: BROVANA IN SCH ×2 (10:05→20:28)
[2021-01-30] MEDS ORDERED: OFIRMEV IV 1000 MG VIAL 1,000 MG/100 ML VIAL IV PRN (10:32)
[2021-01-30] MEDS: REMDESIVIR 100 MG in NS 100 ML IV + SPIKE MINIBAG* 120 ML IV SCH (12:10)
[2021-01-30] MEDS: LIPITOR TAB 20 MG PO SCH (21:33)
[2021-01-30] MEDS: COLACE CAP 100 MG PO SCH (21:33)
[2021-01-30] MEDS: MILK OF MAGNESIA PO SCH (21:34)
[2021-01-30] MEDS: REQUIP PO SCH (21:34)
[2021-01-30] MEDS: RESTORIL CAP 15 MG PO PRN (21:34)
[2021-01-31] MEDS: ZOFRAN INJ 4 MG VIAL IVP PRN ×2 (02:31→18:53)
[2021-01-31] MEDS: ASCORBIC ACID INJ MULTI-DOSE VIAL 1,500 MG in NS 100 ML IV 100 ML IV SCH ×4 (02:32→21:08)
[2021-01-31 05:09] LABS: BASOPHILS % (AUTO) 0.1 % (0.2-1.0); HEMATOCRIT 39.9 % (42.0-54.0); HEMOGLOBIN 13.6 g/dL (13.5-18.0); LYMPHOCYTES # (AUTO) 0.3 X10^3/uL (1.3-2.9); LYMPHOCYTES % (AUTO) 1.6 % (21.0-51.0); MEAN CORPUSCULAR HEMOGLOBIN 30.5 pg (27.0-34.0); MEAN CORPUSCULAR VOLUME 89.8 fL (80.0-100.0); MEAN PLATELET VOLUME 9.1 fL (7.4-11.0); MONOCYTES # (AUTO) 0.3 x10^3/uL (0.3-0.8); NEUTROPHILS # (AUTO) 15.1 x10^3/uL (2.2-4.8); NEUTROPHILS % (AUTO) 96.3 % (42.0-75.0); PLATELET COUNT 217 X10^3/uL (150.0-450.0); RED BLOOD COUNT 4.45 X10^6/uL (4.7-6.0); RED CELL DISTRIBUTION WIDTH 16.4 % (11.6-16.5); WHITE BLOOD COUNT 15.7 X10^3/uL (3.6-10.0)
[2021-01-31 05:19] LABS: ALANINE AMINOTRANSFERASE 56 Units/L (12-78); ALBUMIN 2.1 g/dL (3.4-5.0); ALKALINE PHOSPHATASE 58 Units/L (46-116); ASPARTATE AMINO TRANSFERASE 67 Units/L (15-37); BLOOD UREA NITROGEN 23 mg/dL (7-18); CARBON DIOXIDE 34.9 mmol/L (21-32); CHLORIDE 110 mmol/L (98-107); COR CA(FOR HYPOALB) 9.5 mg/dL (8.5-10.1); COR NA(FOR HYPERGLY) 149 mmol/L (136-145); SODIUM 148 mmol/L (136-145); TOTAL PROTEIN 5.3 g/dL (6.4-8.2); eGFR NON BLACK RACES > 60 (>60)
[2021-01-31 05:26] LABS: LACTIC ACID 1.8 mmol/L (0.4-2.0)
[2021-01-31] MEDS: ZOSYN VIAL 3.375 GRAMS 3.375 G in NS 100 ML IV + SPIKE MINIBAG* 100 ML IV SCH ×3 (05:33→21:22)
[2021-01-31] MEDS: SOLU-Medrol 40 MG VIAL IVP SCH ×3 (05:33→21:22)
[2021-01-31 05:38] LABS: ABG ALLEN TEST POS; ABG HCO3 36.7 mmol/L (22-26)
[2021-01-31 05:39] LABS: BAND NEUTROPHILS % 2 % (0-10); BURR CELLS PRESENT; OVALOCYTES PRESENT; PLATELET MORPHOLOGY COMMENT NORMAL (NORMAL)
[2021-01-31] MEDS ORDERED: POTASSIUM CHL 60 MEQ/NS 0.45% 500 ML IV PRN (05:53)
[2021-01-31] MEDS ORDERED: MICRO K EXTEN CAP 10 MEQ PO PRN (05:53)
[2021-01-31] MEDS ORDERED: POTASSIUM CHLORIDE LIQ 20 MEQ UDC PO PRN (05:53)
[2021-01-31] MEDS ORDERED: POTASSIUM CHL 40 MEQ/NS 0.45% 500 ML IV PRN (05:53)
[2021-01-31] MEDS ORDERED: KLOR-CON PO PRN (05:53)
--- NOTE | 2021-01-31 06:42 | RAD ---
HISTORYSOB, COVID+STUDYCHEST, 1 [id number]/13/2021.TECHNIQUEAP view of the chestFINDINGSCardiac and mediastinal contours are within normal limits. No significant change in bilateral interstitial opacities. No definite pleural effusion or pneumothorax.IMPRESSIONNo significant change.Electronically signed by: Bandar Camejo (Jan 31, 2021 06:40:16)
[2021-01-31] MEDS ORDERED: LASIX IVP ONE (07:00)
[2021-01-31] MEDS: LOVENOX INJ 100 MG SYR SC SCH ×2 (08:15→21:21)
[2021-01-31] MEDS: TRICOR TAB 160 MG PO SCH (08:16)
[2021-01-31] MEDS: VITAMIN D3 125 mcg (5,000 UNITS) PO SCH (08:16)
[2021-01-31] MEDS: PROTONIX INJ 40 MG VIAL IVP SCH ×2 (08:16→21:22)
[2021-01-31] MEDS: VITAMIN A PO SCH (08:19)
[2021-01-31] MEDS: BROVANA IN SCH ×2 (08:20→21:56)
[2021-01-31] MEDS: PULMICORT NEB TX 0.5 MG NEB SCH ×2 (08:20→21:56)
[2021-01-31] MEDS: ZITHROMAX INJ 500 MG VIAL 250 MG in D5W 250 ML IV 250 ML IV SCH (10:45)
[2021-01-31] MEDS: D5W 1000 ML IV 1,000 ML IV SCH (18:53)
[2021-01-31] MEDS: LIPITOR TAB 20 MG PO SCH (21:21)
[2021-01-31] MEDS: COLACE CAP 100 MG PO SCH (21:21)
[2021-01-31] MEDS: MILK OF MAGNESIA PO SCH (21:22)
[2021-01-31] MEDS: REQUIP PO SCH (21:22)
[2021-02-01] MEDS: ASCORBIC ACID INJ MULTI-DOSE VIAL 1,500 MG in NS 100 ML IV 100 ML IV SCH ×4 (02:24→20:37)
[2021-02-01] MEDS: D5W 1000 ML IV 1,000 ML IV SCH ×2 (02:24→17:34)
[2021-02-01 04:57] LABS: ABG BASE EXCESS 14.7 mmol/L (-2.0-2.0)
[2021-02-01 04:59] LABS: ABG ALLEN TEST POS; ABG HCO3 39.3 mmol/L (22-26)
[2021-02-01] MEDS: ZOSYN VIAL 3.375 GRAMS 3.375 G in NS 100 ML IV + SPIKE MINIBAG* 100 ML IV SCH (05:33)
[2021-02-01] MEDS: SOLU-Medrol 40 MG VIAL IVP SCH ×3 (05:33→22:00)
[2021-02-01 05:53] LABS: BASOPHILS % (AUTO) 0.2 % (0.2-1.0); HEMATOCRIT 40.5 % (42.0-54.0); HEMOGLOBIN 13.9 g/dL (13.5-18.0); LYMPHOCYTES # (AUTO) 0.2 X10^3/uL (1.3-2.9); LYMPHOCYTES % (AUTO) 1.9 % (21.0-51.0); MEAN CORPUSCULAR HEMOGLOBIN 30.6 pg (27.0-34.0); MEAN CORPUSCULAR HGB CONC 34.3 g/dL (33.0-35.0); MEAN CORPUSCULAR VOLUME 89.2 fL (80.0-100.0); MEAN PLATELET VOLUME 9.3 fL (7.4-11.0); MONOCYTES # (AUTO) 0.4 x10^3/uL (0.3-0.8); MONOCYTES % (AUTO) 3.4 % (0.0-13.0); NEUTROPHILS # (AUTO) 11.6 x10^3/uL (2.2-4.8); NEUTROPHILS % (AUTO) 94.5 % (42.0-75.0); PLATELET COUNT 246 X10^3/uL (150.0-450.0); RED BLOOD COUNT 4.54 X10^6/uL (4.7-6.0); RED CELL DISTRIBUTION WIDTH 16.7 % (11.6-16.5); WHITE BLOOD COUNT 12.2 X10^3/uL (3.6-10.0)
[2021-02-01 06:04] LABS: ALANINE AMINOTRANSFERASE 59 Units/L (12-78); ALBUMIN 2.1 g/dL (3.4-5.0); ALKALINE PHOSPHATASE 61 Units/L (46-116); ASPARTATE AMINO TRANSFERASE 58 Units/L (15-37); BLOOD UREA NITROGEN 22 mg/dL (7-18); CALCIUM 8.2 mg/dL (8.5-10.1); CARBON DIOXIDE 39.1 mmol/L (21-32); CHLORIDE 106 mmol/L (98-107); COR CA(FOR HYPOALB) 9.7 mg/dL (8.5-10.1); COR NA(FOR HYPERGLY) 148 mmol/L (136-145); CREATININE 0.83 mg/dL (0.70-1.30); SODIUM 146 mmol/L (136-145); TOTAL PROTEIN 5.5 g/dL (6.4-8.2); eGFR NON BLACK RACES > 60 (>60)
[2021-02-01 06:18] LABS: BAND NEUTROPHILS % 2 % (0-10); PLATELET MORPHOLOGY COMMENT NORMAL (NORMAL)
[2021-02-01 06:19] LABS: OVALOCYTES PRESENT
--- NOTE | 2021-02-01 06:38 | RAD ---
HISTORYSOB, COVID+STUDYCHEST, 1 [id number]/14/2021.TECHNIQUEAP view of the chestFINDINGSCardiac and mediastinal contours are within normal limits. No significant change in bilateral hazy and interstitial pulmonary opacities. No definite pleural effusion or pneumothorax.IMPRESSIONNo significant change.Electronically signed by: Bandar Camejo (Feb 01, 2021 06:36:57)
[2021-02-01] MEDS ORDERED: NS 250 ML IV 250 ML IV ONE (07:47)
[2021-02-01] MEDS: BROVANA IN SCH (09:00)
[2021-02-01] MEDS: PULMICORT NEB TX 0.5 MG NEB SCH (09:00)
[2021-02-01] MEDS: VITAMIN A PO SCH (09:25)
[2021-02-01] MEDS: LOVENOX INJ 100 MG SYR SC SCH ×2 (09:25→20:52)
[2021-02-01] MEDS: PROTONIX INJ 40 MG VIAL IVP SCH ×2 (09:27→20:35)
[2021-02-01] MEDS: NORVASC TAB 5 MG PO SCH (09:27)
[2021-02-01] MEDS: ZITHROMAX INJ 500 MG VIAL 250 MG in D5W 250 ML IV 250 ML IV SCH (09:27)
[2021-02-01] MEDS: VITAMIN D3 125 mcg (5,000 UNITS) PO SCH (09:27)
[2021-02-01] MEDS: TRICOR TAB 160 MG PO SCH (09:27)
[2021-02-01] MEDS ORDERED: LASIX IVP ONE (10:16)
[2021-02-01] MEDS: ZOSYN VIAL 3.375 GRAMS 3.375 G in NS 50 ML IV + SPIKE MINIBAG* 50 ML IV SCH ×2 (14:30→22:00)
[2021-02-01] MEDS: COLACE CAP 100 MG PO SCH (20:36)
[2021-02-01] MEDS: LIPITOR TAB 20 MG PO SCH (20:36)
[2021-02-01] MEDS: REQUIP PO SCH (20:37)
[2021-02-01] MEDS: MILK OF MAGNESIA PO SCH (20:53)
[2021-02-02] MEDS: D5W 1000 ML IV 1,000 ML IV SCH ×2 (02:32→16:32)
[2021-02-02] MEDS: ASCORBIC ACID INJ MULTI-DOSE VIAL 1,500 MG in NS 100 ML IV 100 ML IV SCH ×4 (03:00→21:17)
[2021-02-02 04:28] LABS: ABG ALLEN TEST POS; ABG BASE EXCESS 18.8 mmol/L (-2.0-2.0); ABG HCO3 43.7 mmol/L (22-26)
--- NOTE | 2021-02-02 06:04 | RAD ---
HISTORYCOVID PNEUMONIASTUDYCHEST, 1 [id number]/15/2021.TECHNIQUEAP view of the chestFINDINGSCardiac and mediastinal contours are within normal limits. No significant change in bilateral airspace and interstitial opacities. No definite pleural effusion or pneumothorax.IMPRESSIONNo acute pulmonary process.Electronically signed by: Bandar Camejo (Feb 02, 2021 06:02:59)
[2021-02-02 06:32] LABS: BASOPHILS % (AUTO) 0.1 % (0.2-1.0); HEMOGLOBIN 13.4 g/dL (13.5-18.0); LYMPHOCYTES # (AUTO) 0.3 X10^3/uL (1.3-2.9); LYMPHOCYTES % (AUTO) 2.4 % (21.0-51.0); MEAN CORPUSCULAR HEMOGLOBIN 30.9 pg (27.0-34.0); MEAN CORPUSCULAR HGB CONC 34.4 g/dL (33.0-35.0); MEAN PLATELET VOLUME 9.1 fL (7.4-11.0); MONOCYTES # (AUTO) 0.5 x10^3/uL (0.3-0.8); MONOCYTES % (AUTO) 3.6 % (0.0-13.0); NEUTROPHILS % (AUTO) 93.9 % (42.0-75.0); PLATELET COUNT 223 X10^3/uL (150.0-450.0); RED BLOOD COUNT 4.33 X10^6/uL (4.7-6.0); WHITE BLOOD COUNT 12.8 X10^3/uL (3.6-10.0)
[2021-02-02 06:41] LABS: ALANINE AMINOTRANSFERASE 67 Units/L (12-78); ALBUMIN 1.9 g/dL (3.4-5.0); ALKALINE PHOSPHATASE 55 Units/L (46-116); ASPARTATE AMINO TRANSFERASE 61 Units/L (15-37); BLOOD UREA NITROGEN 22 mg/dL (7-18); CALCIUM 7.9 mg/dL (8.5-10.1); CARBON DIOXIDE 38.1 mmol/L (21-32); CHLORIDE 103 mmol/L (98-107); COR CA(FOR HYPOALB) 9.6 mg/dL (8.5-10.1); COR NA(FOR HYPERGLY) 145 mmol/L (136-145); CREATININE 0.88 mg/dL (0.70-1.30); SODIUM 143 mmol/L (136-145); eGFR NON BLACK RACES > 60 (>60)
[2021-02-02] MEDS: SOLU-Medrol 40 MG VIAL IVP SCH ×3 (06:52→21:19)
[2021-02-02] MEDS: ZOSYN VIAL 3.375 GRAMS 3.375 G in NS 50 ML IV + SPIKE MINIBAG* 50 ML IV SCH ×3 (06:53→21:19)
[2021-02-02 07:41] LABS: BAND NEUTROPHILS % 2 % (0-10); PLATELET MORPHOLOGY COMMENT NORMAL (NORMAL)
[2021-02-02] MEDS: PROTONIX INJ 40 MG VIAL IVP SCH ×2 (08:22→21:18)
[2021-02-02] MEDS: TRICOR TAB 160 MG PO SCH (08:23)
[2021-02-02] MEDS: NORVASC TAB 5 MG PO SCH (08:23)
[2021-02-02] MEDS: VITAMIN D3 125 mcg (5,000 UNITS) PO SCH (08:24)
[2021-02-02] MEDS: VITAMIN A PO SCH (08:24)
[2021-02-02] MEDS: K-DUR TAB 20 MEQ PO PRN (08:25)
[2021-02-02] MEDS: ZITHROMAX INJ 500 MG VIAL 250 MG in D5W 250 ML IV 250 ML IV SCH (08:57)
[2021-02-02] MEDS: PULMICORT NEB TX 0.5 MG NEB SCH ×2 (09:33→20:52)
[2021-02-02] MEDS: BROVANA IN SCH ×2 (09:33→20:52)
[2021-02-02] MEDS: LOVENOX INJ 100 MG SYR SC SCH ×2 (09:48→21:18)
[2021-02-02] MEDS: BENADRYL INJ 50 MG VIAL IVP PRN (13:39)
[2021-02-02] MEDS ORDERED: LASIX IVP ONE (13:51)
[2021-02-02] MEDS: AFRIN NASAL SPRAY SCH ×2 (15:03→21:16)
[2021-02-02] MEDS: LIPITOR TAB 20 MG PO SCH (21:17)
[2021-02-02] MEDS: COLACE CAP 100 MG PO SCH (21:17)
[2021-02-02] MEDS: MILK OF MAGNESIA PO SCH (21:18)
[2021-02-02] MEDS: REQUIP PO SCH (21:19)
[2021-02-02] MEDS: RESTORIL CAP 15 MG PO PRN (23:07)
[2021-02-03] MEDS: ASCORBIC ACID INJ MULTI-DOSE VIAL 1,500 MG in NS 100 ML IV 100 ML IV SCH ×4 (03:08→20:59)
[2021-02-03] MEDS: D5W 1000 ML IV 1,000 ML IV SCH ×2 (03:08→19:27)
[2021-02-03 05:22] LABS: ABG BASE EXCESS 16.8 mmol/L (-2.0-2.0)
[2021-02-03 05:23] LABS: ABG ALLEN TEST POS; ABG HCO3 40.3 mmol/L (22-26)
[2021-02-03] MEDS: ZOSYN VIAL 3.375 GRAMS 3.375 G in NS 50 ML IV + SPIKE MINIBAG* 50 ML IV SCH ×3 (05:24→21:01)
[2021-02-03] MEDS: SOLU-Medrol 40 MG VIAL IVP SCH ×3 (05:24→21:01)
[2021-02-03] MEDS: BENADRYL INJ 50 MG VIAL IVP PRN (05:34)
[2021-02-03 06:03] LABS: BASOPHILS % (AUTO) 0.2 % (0.2-1.0); HEMATOCRIT 41.9 % (42.0-54.0); HEMOGLOBIN 14.4 g/dL (13.5-18.0); LYMPHOCYTES # (AUTO) 0.3 X10^3/uL (1.3-2.9); MEAN CORPUSCULAR HEMOGLOBIN 30.7 pg (27.0-34.0); MEAN CORPUSCULAR HGB CONC 34.3 g/dL (33.0-35.0); MEAN CORPUSCULAR VOLUME 89.4 fL (80.0-100.0); MEAN PLATELET VOLUME 9.5 fL (7.4-11.0); MONOCYTES # (AUTO) 0.3 x10^3/uL (0.3-0.8); MONOCYTES % (AUTO) 1.8 % (0.0-13.0); NEUTROPHILS # (AUTO) 13.6 x10^3/uL (2.2-4.8); PLATELET COUNT 227 X10^3/uL (150.0-450.0); RED BLOOD COUNT 4.68 X10^6/uL (4.7-6.0); WHITE BLOOD COUNT 14.2 X10^3/uL (3.6-10.0)
[2021-02-03 06:10] LABS: ALANINE AMINOTRANSFERASE 71 Units/L (12-78); ALKALINE PHOSPHATASE 61 Units/L (46-116); ASPARTATE AMINO TRANSFERASE 55 Units/L (15-37); BLOOD UREA NITROGEN 24 mg/dL (7-18); CALCIUM 8.1 mg/dL (8.5-10.1); CARBON DIOXIDE 39.1 mmol/L (21-32); CHLORIDE 100 mmol/L (98-107); COR CA(FOR HYPOALB) 9.7 mg/dL (8.5-10.1); COR NA(FOR HYPERGLY) 143 mmol/L (136-145); CREATININE 0.94 mg/dL (0.70-1.30); SODIUM 141 mmol/L (136-145); TOTAL PROTEIN 5.4 g/dL (6.4-8.2); eGFR NON BLACK RACES > 60 (>60)
--- NOTE | 2021-02-03 06:39 | RAD ---
HISTORYCOVID PNEUMONIASTUDYCHEST, 1 VIEWCOMPARISONOne day prior.TECHNIQUEAP view of the chestFINDINGSCardiac and mediastinal contours are within normal limits. No significant change in bilateral hazy and interstitial opacities. No definite pleural effusion or pneumothorax.IMPRESSIONNo significant change.Electronically signed by: Bandar Camejo (Feb 03, 2021 06:37:23)
[2021-02-03 06:48] LABS: BAND NEUTROPHILS % 1 % (0-10)
[2021-02-03 06:49] LABS: OVALOCYTES PRESENT; PLATELET MORPHOLOGY COMMENT NORMAL (NORMAL)
[2021-02-03] MEDS: PULMICORT NEB TX 0.5 MG NEB SCH ×2 (08:45→20:01)
[2021-02-03] MEDS: BROVANA IN SCH ×2 (08:45→20:01)
[2021-02-03] MEDS: AFRIN NASAL SPRAY SCH ×2 (08:55→20:59)
[2021-02-03] MEDS: NORVASC TAB 5 MG PO SCH (08:56)
[2021-02-03] MEDS: LOVENOX INJ 100 MG SYR SC SCH ×2 (08:56→20:55)
[2021-02-03] MEDS: VITAMIN A PO SCH (08:57)
[2021-02-03] MEDS: PROTONIX INJ 40 MG VIAL IVP SCH ×2 (08:57→21:01)
[2021-02-03] MEDS: TRICOR TAB 160 MG PO SCH (08:57)
[2021-02-03] MEDS: VITAMIN D3 125 mcg (5,000 UNITS) PO SCH (08:57)
[2021-02-03] MEDS: ZITHROMAX INJ 500 MG VIAL 250 MG in D5W 250 ML IV 250 ML IV SCH (08:57)
--- NOTE | 2021-02-03 14:07 | PCM.PROG ---
Progress Note - Progress Note for Day of Date of Exam: 02/03/21 - Subjective Subjective: The patient is a 71-year-old white male who is being treated for COVID-19 pneumonia with hypoxia. He is currently on BiPap. The patients FIO2 was down to He reports that just plain ice water makes him nauseated and he has had two episodes of vomiting that he relates to the ice water making him be nauseated. The patient had an elevated lactic acid due to COVID-19 pneumonia and sepsis and it is down into normal range. He has been afebrile for about 24 hours now. He has had some elevated blood pressures with no history of high blood pressure and we started him on Norvasc, 5 mg daily - Past Medical Family Social History Past Med/Fam/Surg Hx: No changes since H&P Allergies: Allergies No Known Drug Allergies Allergy (Verified 01/26/21 08:28) - Review of Systems ROS: No change since H&P - Vital Signs and I&O's Vital Signs: Temperature 97.9 F Pulse Rate [Right Brachial] 69 Pulse Rate 90 Respiratory Rate 33 Blood Pressure [Right Arm] 104/65 Blood Pressure 125/73 O2 Sat by Pulse Oximetry 84 Intake and Output: Intake & Output 02/01/21 02/02/21 02/03/21 02/04/21 11:59 11:59 11:59 11:59 Intake Total 3888 / 3888 3670 / 3670 3118 / 3118 Output Total 1925 / 1925 3150 / 3150 2650 / 2650 Balance 1962 / 1962 520 / 520 468 / 468 - Physical Exam Oriented: Unable to test Eyes: Normal Ear: Normal Nose: Normal Throat: Normal Respiratory: Diminished Cardiovascular: Other (The patient has crepitus of both sides of his chest.) : Normal Auscultation: Bowel Sounds: Normal Tenderness: Normal Skin: Normal Musculoskeletal: Normal Psychiatric: Other (cannot assess) Affect: Anxious Speech Pattern: Clear, Appropriate - Laboratory and Diagnostics Result Diagrams: 02/03/21 05:28 02/03/21 05:28 Labs: 01/26/21 08:37 Blood Blood Culture - Final 01/26/21 08:37 Blood Blood Culture - Final Laboratory WBC 14.2 X10^3/uL (3.6-10.0) H 02/03/21 05:28 RBC 4.68 X10^6/uL (4.7-6.0) L 02/03/21 05:28 Hgb 14.4 g/dL (13.5-18.0) 02/03/21 05:28 Hct 41.9 % (42.0-54.0) L 02/03/21 05:28 MCV 89.4 fL (80.0-100.0) 02/03/21 05:28 MCH 30.7 pg (27.0-34.0) 02/03/21 05:28 MCHC 34.3 g/dL (33.0-35.0) 02/03/21 05:28 RDW 16.0 % (11.6-16.5) 02/03/21 05:28 Plt Count 227 X10^3/uL (150.0-450.0) 02/03/21 05:28 Plt Count Comment Adequate (ADEQUATE) 02/03/21 05:28 MPV 9.5 fL (7.4-11.0) 02/03/21 05:28 Neut % (Auto) 96.0 % (42.0-75.0) H 02/03/21 05:28 Lymph % (Auto) 2.0 % (21.0-51.0) L 02/03/21 05:28 Beckham % (Auto) 1.8 % (0.0-13.0) 02/03/21 05:28 Eos % (Auto) 0.0 % (0.9-2.9) L 02/03/21 05:28 Baso % (Auto) 0.2 % (0.2-1.0) 02/03/21 05:28 Neut # (Auto) 13.6 x10^3/uL (2.2-4.8) H 02/03/21 05:28 Lymph # (Auto) 0.3 X10^3/uL (1.3-2.9) L 02/03/21 05:28 Beckham # (Auto) 0.3 x10^3/uL (0.3-0.8) 02/03/21 05:28 Eos # (Auto) 0.0 x10^3/uL (0.0-0.2) 02/03/21 05:28 Baso # (Auto) 0.0 X10^3/uL (0.0-0.1) 02/03/21 05:28 Absolute Nucleated RBC 0.0 /100WBC 02/03/21 05:28 Total Counted 100 02/03/21 05:28 Neutrophils % (Manual) 98 % (39-76) H 02/03/21 05:28 Band Neutrophils % 1 % (0-10) 02/03/21 05:28 Lymphocytes % (Manual) 1 % (13-43) L 02/03/21 05:28 Monocytes % (Manual) 1 % (4-9) L 02/02/21 05:52 Plt Morphology Comment Normal (NORMAL) 02/03/21 05:28 RBC Morphology Abnormal (NORMAL) 02/03/21 05:28 Ovalocytes Present 02/03/21 05:28 Alex Cells Present 01/31/21 04:45 D-Dimer 0.59 ug/ml (0.0-0.57) H* 01/27/21 06:09 Sample Site Rrad 02/03/21 05:16 ABG pH 7.590 (7.35-7.45) H* 02/03/21 05:16 ABG pCO2 42.0 mmHg (35.0-45.0) 02/03/21 05:16 ABG pO2 47.0 mmHg (80.0-100.0) L* 02/03/21 05:16 ABG HCO3 40.3 mmol/L (22-26) H* 02/03/21 05:16 ABG O2 Saturation 89.0 % (90-100) L 02/03/21 05:16 ABG Base Excess 16.8 mmol/L (-2.0-2.0) H 02/03/21 05:16 Francis Test Pos 02/03/21 05:16 A-a Gradient 507.0 mmHg 02/03/21 05:16 FiO2 85.0 02/03/21 05:16 Blood Gas Comments Pt coco well sa 02/03/21 05:16 Sodium 141 mmol/L (136-145) 02/03/21 05:28 Corrected Sodium 143 mmol/L (136-145) 02/03/21 05:28 Potassium 3.5 mmol/L (3.5-5.1) 02/03/21 05:28 Chloride 100 mmol/L (98-107) 02/03/21 05:28 Carbon Dioxide 39.1 mmol/L (21-32) H 02/03/21 05:28 BUN 24 mg/dL (7-18) H 02/03/21 05:28 Creatinine 0.94 mg/dL (0.70-1.30) 02/03/21 05:28 Est GFR (MDRD) Af Amer > 60 (>60) 02/03/21 05:28 Est GFR (MDRD) Non-Af > 60 (>60) 02/03/21 05:28 Glucose 180 mg/dL (65-99) H 02/03/21 05:28 Lactic Acid 1.8 mmol/L (0.4-2.0) 01/31/21 04:45 Calcium 8.1 mg/dL (8.5-10.1) L 02/03/21 05:28 Corrected Calcium 9.7 mg/dL (8.5-10.1) 02/03/21 05:28 Magnesium 2.3 mg/dL (1.7-2.9) 01/31/21 04:45 Ferritin 3928 ng/mL (26-388) H 01/26/21 07:56 Total Bilirubin 1.00 mg/dL (0.2-1.0) 02/03/21 05:28 AST 55 Units/L (15-37) H 02/03/21 05:28 ALT 71 Units/L (12-78) 02/03/21 05:28 Alkaline Phosphatase 61 Units/L (46-116) 02/03/21 05:28 Creatine Kinase 286 Units/L (39-308) 01/27/21 11:11 CK-MB (CK-2) 4.9 ng/mL (0-4.0) H* 01/27/21 11:11 CK/CKMB % Calc 1.7 % (<4) 01/27/21 11:11 Troponin I < 0.02 ng/mL (0-1.5) 01/27/21 11:11 C-Reactive Protein 91.10 mg/L (0-3.0) H 01/26/21 07:56 B-Natriuretic Peptide 12.5 pg/mL (0-79) 01/26/21 07:56 Total Protein 5.4 g/dL (6.4-8.2) L 02/03/21 05:28 Albumin 2.0 g/dL (3.4-5.0) L 02/03/21 05:28 Globulin 3.4 g/dL (2.5-4.5) 02/03/21 05:28 Albumin/Globulin Ratio 0.6 Ratio (1.1-2.1) L 02/03/21 05:28 SARS CoV-2 RNA Rapid MAGED Positive (NEGATIVE) A 01/27/21 10:27 - Plan (1) Pneumonia due to COVID-19 virus Status: Acute Plan: SUPPLMENTAL O2. IV ATBX, REMDESIVIR, SOLU MEDROL. IV HYDRATION. STRICT I&OS, CARDIAC MONITORING. AM, ABG, CXR (2) Hypoxia Status: Acute
[2021-02-03] MEDS: RESTORIL CAP 15 MG PO PRN (20:55)
[2021-02-03] MEDS: K-DUR TAB 20 MEQ PO PRN (20:55)
[2021-02-03] MEDS: LIPITOR TAB 20 MG PO SCH (20:59)
[2021-02-03] MEDS: COLACE CAP 100 MG PO SCH (20:59)
[2021-02-03] MEDS ORDERED: MILK OF MAGNESIA PO SCH (21:00)
[2021-02-03] MEDS: MILK OF MAGNESIA PO SCH (21:00)
[2021-02-03] MEDS: REQUIP PO SCH (21:02)
[2021-02-04] MEDS: BENADRYL INJ 50 MG VIAL IVP PRN ×2 (01:01→11:36)
[2021-02-04] MEDS: ASCORBIC ACID INJ MULTI-DOSE VIAL 1,500 MG in NS 100 ML IV 100 ML IV SCH ×4 (02:21→20:35)
[2021-02-04 05:12] LABS: ABG BASE EXCESS 16.8 mmol/L (-2.0-2.0)
[2021-02-04 05:14] LABS: ABG HCO3 40.3 mmol/L (22-26)
[2021-02-04 05:15] LABS: ABG ALLEN TEST POS
[2021-02-04 05:30] LABS: BASOPHILS % (AUTO) 0.2 % (0.2-1.0); HEMATOCRIT 40.5 % (42.0-54.0); HEMOGLOBIN 13.9 g/dL (13.5-18.0); LYMPHOCYTES # (AUTO) 0.3 X10^3/uL (1.3-2.9); LYMPHOCYTES % (AUTO) 1.5 % (21.0-51.0); MEAN CORPUSCULAR HEMOGLOBIN 30.4 pg (27.0-34.0); MEAN CORPUSCULAR HGB CONC 34.3 g/dL (33.0-35.0); MEAN CORPUSCULAR VOLUME 88.5 fL (80.0-100.0); MEAN PLATELET VOLUME 9.9 fL (7.4-11.0); MONOCYTES # (AUTO) 0.2 x10^3/uL (0.3-0.8); MONOCYTES % (AUTO) 1.1 % (0.0-13.0); NEUTROPHILS # (AUTO) 17.5 x10^3/uL (2.2-4.8); NEUTROPHILS % (AUTO) 97.2 % (42.0-75.0); PLATELET COUNT 202 X10^3/uL (150.0-450.0); RED BLOOD COUNT 4.58 X10^6/uL (4.7-6.0)
[2021-02-04] MEDS: SOLU-Medrol 40 MG VIAL IVP SCH ×3 (05:39→21:03)
[2021-02-04] MEDS: D5W 1000 ML IV 1,000 ML IV SCH ×2 (05:39→20:35)
[2021-02-04] MEDS: ZOSYN VIAL 3.375 GRAMS 3.375 G in NS 50 ML IV + SPIKE MINIBAG* 50 ML IV SCH ×3 (05:40→21:03)
[2021-02-04 05:46] LABS: ALANINE AMINOTRANSFERASE 64 Units/L (12-78); ALBUMIN 1.9 g/dL (3.4-5.0); ALKALINE PHOSPHATASE 66 Units/L (46-116); ASPARTATE AMINO TRANSFERASE 44 Units/L (15-37); BLOOD UREA NITROGEN 21 mg/dL (7-18); CARBON DIOXIDE 38.2 mmol/L (21-32); CHLORIDE 103 mmol/L (98-107); COR CA(FOR HYPOALB) 9.7 mg/dL (8.5-10.1); COR NA(FOR HYPERGLY) 143 mmol/L (136-145); CREATININE 0.88 mg/dL (0.70-1.30); SODIUM 142 mmol/L (136-145); TOTAL PROTEIN 5.2 g/dL (6.4-8.2); eGFR NON BLACK RACES > 60 (>60)
[2021-02-04 06:19] LABS: PLATELET MORPHOLOGY COMMENT NORMAL (NORMAL)
--- NOTE | 2021-02-04 07:25 | RAD ---
HISTORYCOVID PENUMONIASTUDYCHEST x-ray, 1 VIEWCOMPARISONX-ray from previous dayFINDINGSBilateral lung infiltrates have worsened since prior study. Heart is probably normal in size. Small pleural effusions are not excluded. No pneumothorax is seen.IMPRESSIONLikely worsening of bilateral lung infiltrates.Electronically signed by: Stanford Zaragoza (Feb 04, 2021 07:22:13)
[2021-02-04] MEDS ORDERED: PHARMACY CONSULT - VANCOMYCIN XX SCH (09:00)
[2021-02-04] MEDS: PULMICORT NEB TX 0.5 MG NEB SCH ×2 (09:00→20:43)
[2021-02-04] MEDS: BROVANA IN SCH ×2 (09:00→20:43)
[2021-02-04] MEDS: AFRIN NASAL SPRAY SCH ×2 (09:31→20:36)
[2021-02-04] MEDS: LOVENOX INJ 100 MG SYR SC SCH ×2 (09:31→20:37)
[2021-02-04] MEDS: NORVASC TAB 5 MG PO SCH (09:32)
[2021-02-04] MEDS: VITAMIN A PO SCH (09:33)
[2021-02-04] MEDS: PROTONIX INJ 40 MG VIAL IVP SCH ×2 (09:34→20:36)
[2021-02-04] MEDS: TRICOR TAB 160 MG PO SCH (09:34)
[2021-02-04] MEDS: VITAMIN D3 125 mcg (5,000 UNITS) PO SCH (09:34)
[2021-02-04] MEDS ORDERED: VANCOMYCIN IV *PREMIX 2 G/400 ML BAG 2 G/400 ML PIGGYBACK IV SCH (10:00)
[2021-02-04] MEDS: AMBISOME 300 MG in D5W 250 ML IV 250 ML IV SCH (11:36)
[2021-02-04] MEDS: AVELOX IV 400 MG/250 ML BAG 400 MG/250 ML PIGGYBACK IV SCH (14:56)
[2021-02-04] MEDS: LIPITOR TAB 20 MG PO SCH (20:36)
[2021-02-04] MEDS: REQUIP PO SCH (20:36)
[2021-02-04] MEDS: COLACE CAP 100 MG PO SCH (20:37)
[2021-02-04] MEDS: MILK OF MAGNESIA PO SCH (20:37)
[2021-02-04] MEDS: RESTORIL CAP 15 MG PO PRN (20:37)
[2021-02-04] MEDS: VANCOMYCIN IV *PREMIX 1.5 G/300 ML BAG 1.5 G/300 ML PIGGYBACK IV SCH (20:51)
[2021-02-04] MEDS ORDERED: NS 250 ML IV 250 ML IV ONE (21:04)
[2021-02-05] MEDS: ASCORBIC ACID INJ MULTI-DOSE VIAL 1,500 MG in NS 100 ML IV 100 ML IV SCH ×4 (03:08→20:16)
[2021-02-05 04:19] LABS: ABG BASE EXCESS 13.5 mmol/L (-2.0-2.0)
[2021-02-05 04:22] LABS: ABG ALLEN TEST POS; ABG HCO3 37.6 mmol/L (22-26)
[2021-02-05] MEDS: SOLU-Medrol 40 MG VIAL IVP SCH ×3 (05:00→21:34)
[2021-02-05] MEDS: ZOSYN VIAL 3.375 GRAMS 3.375 G in NS 50 ML IV + SPIKE MINIBAG* 50 ML IV SCH ×3 (05:00→21:35)
[2021-02-05] MEDS: NS 250 ML IV 250 ML IV PRN (05:01)
[2021-02-05 05:38] LABS: BASOPHILS # (AUTO) 0.1 X10^3/uL (0.0-0.1); BASOPHILS % (AUTO) 0.3 % (0.2-1.0); HEMATOCRIT 43.7 % (42.0-54.0); HEMOGLOBIN 14.7 g/dL (13.5-18.0); LYMPHOCYTES # (AUTO) 0.3 X10^3/uL (1.3-2.9); LYMPHOCYTES % (AUTO) 1.6 % (21.0-51.0); MEAN CORPUSCULAR HEMOGLOBIN 30.3 pg (27.0-34.0); MEAN CORPUSCULAR HGB CONC 33.8 g/dL (33.0-35.0); MEAN CORPUSCULAR VOLUME 89.7 fL (80.0-100.0); MEAN PLATELET VOLUME 10.2 fL (7.4-11.0); MONOCYTES # (AUTO) 0.3 x10^3/uL (0.3-0.8); MONOCYTES % (AUTO) 1.6 % (0.0-13.0); NEUTROPHILS # (AUTO) 19.8 x10^3/uL (2.2-4.8); NEUTROPHILS % (AUTO) 96.5 % (42.0-75.0); PLATELET COUNT 169 X10^3/uL (150.0-450.0); RED BLOOD COUNT 4.87 X10^6/uL (4.7-6.0); RED CELL DISTRIBUTION WIDTH 16.3 % (11.6-16.5); WHITE BLOOD COUNT 20.5 X10^3/uL (3.6-10.0)
[2021-02-05 05:52] LABS: ALANINE AMINOTRANSFERASE 66 Units/L (12-78); ALBUMIN 2.1 g/dL (3.4-5.0); ALKALINE PHOSPHATASE 72 Units/L (46-116); ASPARTATE AMINO TRANSFERASE 47 Units/L (15-37); BLOOD UREA NITROGEN 22 mg/dL (7-18); CALCIUM 8.1 mg/dL (8.5-10.1); CARBON DIOXIDE 32.9 mmol/L (21-32); CHLORIDE 102 mmol/L (98-107); COR CA(FOR HYPOALB) 9.6 mg/dL (8.5-10.1); COR NA(FOR HYPERGLY) 142 mmol/L (136-145); CREATININE 0.84 mg/dL (0.70-1.30); SODIUM 140 mmol/L (136-145); TOTAL PROTEIN 5.6 g/dL (6.4-8.2); eGFR NON BLACK RACES > 60 (>60)
[2021-02-05 06:19] LABS: PLATELET MORPHOLOGY COMMENT NORMAL (NORMAL)
--- NOTE | 2021-02-05 08:31 | RAD ---
HISTORYCOVID-19 pneumoniaSTUDYPortable AP [id number]/18/2021FINDINGSContinued normal heart size and contour with similar appearance of b ilateral airspace disease. No new areas of pulmonary involvement identified. There is no evidence for pneumothorax or developing pleural effusion.IMPRESSIONNo change in appearance of bilateral pneumonia .Electronically signed by: BERTHA TOLENTINO (Feb 05, 2021 08:29:48)
[2021-02-05] MEDS: BROVANA IN SCH ×2 (09:02→20:15)
[2021-02-05] MEDS: PULMICORT NEB TX 0.5 MG NEB SCH ×2 (09:02→20:15)
[2021-02-05] MEDS: D5W 1000 ML IV 1,000 ML IV SCH ×2 (09:23→21:43)
[2021-02-05] MEDS: AFRIN NASAL SPRAY SCH ×2 (09:31→20:59)
[2021-02-05] MEDS: AVELOX IV 400 MG/250 ML BAG 400 MG/250 ML PIGGYBACK IV SCH (09:31)
[2021-02-05] MEDS: VITAMIN D3 125 mcg (5,000 UNITS) PO SCH (09:32)
[2021-02-05] MEDS: VITAMIN A PO SCH (09:32)
[2021-02-05] MEDS: NORVASC TAB 5 MG PO SCH (09:33)
[2021-02-05] MEDS: PROTONIX INJ 40 MG VIAL IVP SCH ×2 (09:33→20:20)
[2021-02-05] MEDS: TRICOR TAB 160 MG PO SCH (09:33)
[2021-02-05] MEDS: LOVENOX INJ 100 MG SYR SC SCH ×2 (09:34→20:30)
[2021-02-05] MEDS: VANCOMYCIN IV *PREMIX 1.5 G/300 ML BAG 1.5 G/300 ML PIGGYBACK IV SCH ×2 (09:52→21:43)
[2021-02-05] MEDS: BENADRYL INJ 50 MG VIAL IVP PRN ×2 (11:45→20:21)
[2021-02-05] MEDS: AMBISOME 300 MG in D5W 250 ML IV 250 ML IV SCH (12:10)
[2021-02-05] MEDS ORDERED: PHARMACY CONSULT - IVERMECTIN XX SCH (13:00)
[2021-02-05] MEDS: TOPROL XL PO SCH (15:23)
[2021-02-05] MEDS: IVERMECTIN PO SCH (15:23)
[2021-02-05] MEDS ORDERED: LOVENOX INJ 60 MG SYR SC ONE (20:13)
[2021-02-05] MEDS: LIPITOR TAB 20 MG PO SCH (20:17)
[2021-02-05] MEDS: REQUIP PO SCH (20:21)
[2021-02-05] MEDS: COLACE CAP 100 MG PO SCH (20:27)
[2021-02-05] MEDS ORDERED: PHARMACY COMMENT IV ONE (20:30)
[2021-02-05 21:06] LABS: CREATININE 0.9 mg/dL (0.70-1.30); VANCOMYCIN,TROUGH 8.9 ug/mL (15-20)
[2021-02-06] MEDS: MILK OF MAGNESIA PO SCH ×2 (01:16→20:46)
[2021-02-06] MEDS: ASCORBIC ACID INJ MULTI-DOSE VIAL 1,500 MG in NS 100 ML IV 100 ML IV SCH ×4 (02:23→20:44)
[2021-02-06] MEDS: ZOSYN VIAL 3.375 GRAMS 3.375 G in NS 50 ML IV + SPIKE MINIBAG* 50 ML IV SCH ×3 (05:48→21:57)
[2021-02-06] MEDS: SOLU-Medrol 40 MG VIAL IVP SCH ×3 (05:48→21:56)
[2021-02-06] MEDS: VANCOMYCIN IV *PREMIX 1.5 G/300 ML BAG 1.5 G/300 ML PIGGYBACK IV SCH ×3 (05:48→22:41)
[2021-02-06 06:41] LABS: ABG BASE EXCESS 11.2 mmol/L (-2.0-2.0)
[2021-02-06 06:43] LABS: ABG HCO3 35.1 mmol/L (22-26)
[2021-02-06 06:44] LABS: ABG ALLEN TEST POS
[2021-02-06 06:49] LABS: BASOPHILS # (AUTO) 0.1 X10^3/uL (0.0-0.1); BASOPHILS % (AUTO) 0.3 % (0.2-1.0); HEMATOCRIT 42.6 % (42.0-54.0); HEMOGLOBIN 14.5 g/dL (13.5-18.0); LYMPHOCYTES # (AUTO) 0.4 X10^3/uL (1.3-2.9); LYMPHOCYTES % (AUTO) 2.2 % (21.0-51.0); MEAN CORPUSCULAR HEMOGLOBIN 30.5 pg (27.0-34.0); MEAN CORPUSCULAR HGB CONC 34.1 g/dL (33.0-35.0); MEAN CORPUSCULAR VOLUME 89.2 fL (80.0-100.0); MEAN PLATELET VOLUME 10.3 fL (7.4-11.0); MONOCYTES # (AUTO) 0.2 x10^3/uL (0.3-0.8); MONOCYTES % (AUTO) 1.1 % (0.0-13.0); NEUTROPHILS # (AUTO) 19.7 x10^3/uL (2.2-4.8); NEUTROPHILS % (AUTO) 96.4 % (42.0-75.0); PLATELET COUNT 161 X10^3/uL (150.0-450.0); RED BLOOD COUNT 4.77 X10^6/uL (4.7-6.0); RED CELL DISTRIBUTION WIDTH 16.2 % (11.6-16.5); WHITE BLOOD COUNT 20.4 X10^3/uL (3.6-10.0)
[2021-02-06 06:51] LABS: ALANINE AMINOTRANSFERASE 78 Units/L (12-78); ALBUMIN 2.1 g/dL (3.4-5.0); ALKALINE PHOSPHATASE 77 Units/L (46-116); ASPARTATE AMINO TRANSFERASE 45 Units/L (15-37); BLOOD UREA NITROGEN 22 mg/dL (7-18); CALCIUM 8.3 mg/dL (8.5-10.1); CARBON DIOXIDE 34.4 mmol/L (21-32); CHLORIDE 104 mmol/L (98-107); COR CA(FOR HYPOALB) 9.8 mg/dL (8.5-10.1); COR NA(FOR HYPERGLY) 143 mmol/L (136-145); CREATININE 0.81 mg/dL (0.70-1.30); SODIUM 142 mmol/L (136-145); TOTAL PROTEIN 5.6 g/dL (6.4-8.2); eGFR NON BLACK RACES > 60 (>60)
[2021-02-06 07:42] LABS: BAND NEUTROPHILS % 1 % (0-10)
[2021-02-06 07:43] LABS: PLATELET MORPHOLOGY COMMENT NORMAL (NORMAL)
[2021-02-06] MEDS ORDERED: LASIX IVP ONE (08:11)
[2021-02-06] MEDS: LOVENOX INJ 100 MG SYR SC SCH (09:02)
[2021-02-06] MEDS: PROTONIX INJ 40 MG VIAL IVP SCH ×2 (09:02→20:41)
[2021-02-06] MEDS: BROVANA IN SCH ×2 (09:30→21:58)
[2021-02-06] MEDS: PULMICORT NEB TX 0.5 MG NEB SCH ×2 (09:30→21:58)
[2021-02-06 09:44] LABS: BILIRUBIN,URINE NEGATIVE (NEGATIVE); BLOOD/HEMOGLOBIN,URINE 2+ (NEGATIVE); GLUCOSE, URINE NEGATIVE (NEGATIVE); KETONES,URINE NEGATIVE (NEGATIVE); LEUKOCYTE ESTERASE ,URINE NEGATIVE (NEGATIVE); NITRITES,URINE NEGATIVE (NEGATIVE); PROTEIN,URINE 1+ (NEGATIVE); UROBILINOGEN,URINE NORMAL (NORMAL)
[2021-02-06 09:46] LABS: APPEARANCE,URINE CLEAR (CLEAR); COLOR,URINE YELLOW (YELLOW)
[2021-02-06] MEDS: AFRIN NASAL SPRAY SCH ×2 (09:52→20:46)
[2021-02-06 09:56] LABS: BACTERIA,URINE TRACE /HPF (NEGATIVE); SQUAMOUS EPITHELIAL CELL,UR RARE /HPF (NEGATIVE)
[2021-02-06] MEDS: AVELOX IV 400 MG/250 ML BAG 400 MG/250 ML PIGGYBACK IV SCH (10:10)
[2021-02-06] MEDS: IVERMECTIN PO SCH (10:11)
[2021-02-06] MEDS: TRICOR TAB 160 MG PO SCH (10:12)
[2021-02-06] MEDS: VITAMIN D3 125 mcg (5,000 UNITS) PO SCH (10:13)
[2021-02-06] MEDS: VITAMIN A PO SCH (10:13)
[2021-02-06] MEDS: D5W 1000 ML IV 1,000 ML IV SCH (11:11)
[2021-02-06] MEDS: BENADRYL INJ 50 MG VIAL IVP PRN ×2 (12:25→22:40)
[2021-02-06] MEDS: TOPROL XL PO SCH (15:06)
[2021-02-06] MEDS: ULTRAM PO PRN (15:20)
[2021-02-06] MEDS ORDERED: NS 1/2 1000 ML IV 1,000 ML IV ONE (17:59)
[2021-02-06] MEDS: NS 1/2 1000 ML IV 1,000 ML IV SCH (18:01)
[2021-02-06] MEDS: LIPITOR TAB 20 MG PO SCH (20:41)
[2021-02-06] MEDS: COLACE CAP 100 MG PO SCH (20:41)
[2021-02-06] MEDS: REQUIP PO SCH (20:41)
[2021-02-06] MEDS: LOVENOX INJ 60 MG SYR SC SCH (20:43)
[2021-02-06] MEDS ORDERED: PATIENT'S HOME MEDICATION PO PRN (21:00)
[2021-02-06] MEDS ORDERED: PHARMACY COMMENT IV ONE (21:30)
[2021-02-06 22:25] LABS: CREATININE 0.89 mg/dL (0.70-1.30)
[2021-02-06 22:26] LABS: VANCOMYCIN,TROUGH 20.1 ug/mL (15-20)
[2021-02-06] MEDS: VOLTAREN 1 % GEL MULTI DOSE TUBE TOP SCH (22:58)
[2021-02-07] MEDS: ULTRAM PO PRN ×2 (00:44→15:50)
--- NOTE | 2021-02-07 02:30 | RAD ---
PROCEDURE: Chest X-ray 1 View .HISTORY: COVID PNEUMONIA .TECHNIQUE: AP view .COMPARISON: 02/05/2021.TECHNICAL QUALITY: Satisfactory .FINDINGS:Normal size heart .Continued pneumo mediastinum.Normal central vascularity .Patchy consolidation lung bases are unchanged. No pleural fluid or pneumothorax.Subcutaneous emphysema upper chest and neck bilaterally that is unchanged.IMPRESSION:1. Unchanged bibasilar pneumonia.2. Unchanged pneumo mediastinum and subcutaneous emphysema.Electronically signed by: Sergio South (Feb 07, 2021 02:29:04)
[2021-02-07] MEDS: ASCORBIC ACID INJ MULTI-DOSE VIAL 1,500 MG in NS 100 ML IV 100 ML IV SCH ×4 (02:52→22:00)
[2021-02-07] MEDS: SOLU-Medrol 40 MG VIAL IVP SCH ×3 (05:16→22:00)
[2021-02-07] MEDS: VANCOMYCIN IV *PREMIX 1.5 G/300 ML BAG 1.5 G/300 ML PIGGYBACK IV SCH ×2 (05:16→20:57)
[2021-02-07] MEDS: ZOSYN VIAL 3.375 GRAMS 3.375 G in NS 50 ML IV + SPIKE MINIBAG* 50 ML IV SCH ×3 (05:17→22:00)
[2021-02-07] MEDS: VOLTAREN 1 % GEL MULTI DOSE TUBE TOP SCH ×3 (06:09→22:00)
[2021-02-07] MEDS: NS 1/2 1000 ML IV 1,000 ML IV SCH ×2 (06:10→23:46)
[2021-02-07 06:17] LABS: BASOPHILS % (AUTO) 0.1 % (0.2-1.0); HEMATOCRIT 43.5 % (42.0-54.0); HEMOGLOBIN 14.5 g/dL (13.5-18.0); LYMPHOCYTES # (AUTO) 0.3 X10^3/uL (1.3-2.9); LYMPHOCYTES % (AUTO) 1.3 % (21.0-51.0); MEAN CORPUSCULAR HEMOGLOBIN 30.3 pg (27.0-34.0); MEAN CORPUSCULAR HGB CONC 33.3 g/dL (33.0-35.0); MEAN CORPUSCULAR VOLUME 90.9 fL (80.0-100.0); MEAN PLATELET VOLUME 10.5 fL (7.4-11.0); MONOCYTES # (AUTO) 0.4 x10^3/uL (0.3-0.8); MONOCYTES % (AUTO) 1.7 % (0.0-13.0); NEUTROPHILS # (AUTO) 24.1 x10^3/uL (2.2-4.8); NEUTROPHILS % (AUTO) 96.9 % (42.0-75.0); PLATELET COUNT 168 X10^3/uL (150.0-450.0); RED BLOOD COUNT 4.78 X10^6/uL (4.7-6.0); RED CELL DISTRIBUTION WIDTH 15.9 % (11.6-16.5); WHITE BLOOD COUNT 24.9 X10^3/uL (3.6-10.0)
[2021-02-07 06:39] LABS: ALANINE AMINOTRANSFERASE 74 Units/L (12-78); ALBUMIN 2.1 g/dL (3.4-5.0); ALKALINE PHOSPHATASE 79 Units/L (46-116); ASPARTATE AMINO TRANSFERASE 42 Units/L (15-37); BLOOD UREA NITROGEN 23 mg/dL (7-18); CALCIUM 8.3 mg/dL (8.5-10.1); CARBON DIOXIDE 31.9 mmol/L (21-32); CHLORIDE 107 mmol/L (98-107); COR CA(FOR HYPOALB) 9.8 mg/dL (8.5-10.1); COR NA(FOR HYPERGLY) 146 mmol/L (136-145); CREATININE 1.01 mg/dL (0.70-1.30); SODIUM 144 mmol/L (136-145); TOTAL PROTEIN 5.7 g/dL (6.4-8.2); eGFR NON BLACK RACES > 60 (>60)
[2021-02-07 06:49] LABS: ABG BASE EXCESS 8.3 mmol/L (-2.0-2.0)
[2021-02-07 06:51] LABS: ABG HCO3 32.8 mmol/L (22-26)
[2021-02-07 06:52] LABS: ABG ALLEN TEST POS
[2021-02-07 07:25] LABS: BAND NEUTROPHILS % 1 % (0-10); PLATELET MORPHOLOGY COMMENT NORMAL (NORMAL)
[2021-02-07] MEDS: BROVANA IN SCH ×2 (09:06→20:20)
[2021-02-07] MEDS: PULMICORT NEB TX 0.5 MG NEB SCH ×2 (09:06→20:20)
[2021-02-07] MEDS: PROTONIX INJ 40 MG VIAL IVP SCH ×2 (09:11→22:00)
[2021-02-07] MEDS: AFRIN NASAL SPRAY SCH ×2 (09:56→22:00)
[2021-02-07] MEDS: LOVENOX INJ 60 MG SYR SC SCH (09:57)
[2021-02-07] MEDS: AVELOX IV 400 MG/250 ML BAG 400 MG/250 ML PIGGYBACK IV SCH (09:57)
[2021-02-07] MEDS: VITAMIN D3 125 mcg (5,000 UNITS) PO SCH (09:58)
[2021-02-07] MEDS: TRICOR TAB 160 MG PO SCH (09:58)
[2021-02-07] MEDS: VITAMIN A PO SCH (09:58)
[2021-02-07] MEDS ORDERED: LASIX IVP ONE (10:08)
[2021-02-07] MEDS: BENADRYL INJ 50 MG VIAL IVP PRN (11:00)
[2021-02-07 12:02] LABS: CKMB % 3.6 % (<4); CREATINE KINASE MB 3.2 ng/mL (0-4.0); TROPONIN I 0.03 ng/mL (0-1.5)
[2021-02-07] MEDS ORDERED: PHARMACY COMMENT IV ONE (13:30)
[2021-02-07 15:18] LABS: CREATININE 1.03 mg/dL (0.70-1.30)
[2021-02-07 15:23] LABS: VANCOMYCIN,TROUGH 22.9 ug/mL (15-20)
[2021-02-07] MEDS: TOPROL XL PO SCH (15:49)
[2021-02-07] MEDS: K-RIDER 10 MEQ/NS 100 ML 10 MEQ/100 ML BAG IV PRN (16:24)
[2021-02-07] MEDS ORDERED: NS 1/2 1000 ML IV 1,000 ML IV ONE (20:53)
[2021-02-07] MEDS: VANCOMYCIN IV *PREMIX 1.25 G/250 ML BAG 1.25 G/250 ML PIGGYBACK IV SCH (22:00)
[2021-02-07] MEDS: LIPITOR TAB 20 MG PO SCH (22:00)
[2021-02-07] MEDS: COLACE CAP 100 MG PO SCH (22:00)
[2021-02-07] MEDS: REQUIP PO SCH (22:00)
[2021-02-08] MEDS: LOVENOX INJ 60 MG SYR SC SCH ×3 (02:19→20:32)
[2021-02-08] MEDS: MILK OF MAGNESIA PO SCH (02:21)
[2021-02-08] MEDS: BENADRYL INJ 50 MG VIAL IVP PRN ×2 (02:50→08:50)
[2021-02-08] MEDS: ASCORBIC ACID INJ MULTI-DOSE VIAL 1,500 MG in NS 100 ML IV 100 ML IV SCH ×4 (02:50→20:28)
[2021-02-08 05:17] LABS: BASOPHILS # (AUTO) 0.2 X10^3/uL (0.0-0.1); BASOPHILS % (AUTO) 0.5 % (0.2-1.0); HEMATOCRIT 42.7 % (42.0-54.0); HEMOGLOBIN 14.4 g/dL (13.5-18.0); LYMPHOCYTES # (AUTO) 0.5 X10^3/uL (1.3-2.9); LYMPHOCYTES % (AUTO) 1.6 % (21.0-51.0); MEAN CORPUSCULAR HEMOGLOBIN 30.2 pg (27.0-34.0); MEAN CORPUSCULAR HGB CONC 33.8 g/dL (33.0-35.0); MEAN CORPUSCULAR VOLUME 89.3 fL (80.0-100.0); MEAN PLATELET VOLUME 10.6 fL (7.4-11.0); MONOCYTES # (AUTO) 0.9 x10^3/uL (0.3-0.8); NEUTROPHILS # (AUTO) 28.2 x10^3/uL (2.2-4.8); NEUTROPHILS % (AUTO) 94.9 % (42.0-75.0); PLATELET COUNT 196 X10^3/uL (150.0-450.0); RED BLOOD COUNT 4.78 X10^6/uL (4.7-6.0); RED CELL DISTRIBUTION WIDTH 16.8 % (11.6-16.5); WHITE BLOOD COUNT 29.7 X10^3/uL (3.6-10.0)
[2021-02-08 05:22] LABS: ALANINE AMINOTRANSFERASE 74 Units/L (12-78); ALBUMIN 2.3 g/dL (3.4-5.0); ALKALINE PHOSPHATASE 71 Units/L (46-116); ASPARTATE AMINO TRANSFERASE 41 Units/L (15-37); BLOOD UREA NITROGEN 46 mg/dL (7-18); CALCIUM 8.5 mg/dL (8.5-10.1); CARBON DIOXIDE 28.6 mmol/L (21-32); CHLORIDE 107 mmol/L (98-107); COR CA(FOR HYPOALB) 9.9 mg/dL (8.5-10.1); COR NA(FOR HYPERGLY) 148 mmol/L (136-145); CREATININE 1.22 mg/dL (0.70-1.30); SODIUM 147 mmol/L (136-145); eGFR NON BLACK RACES > 60 (>60)
[2021-02-08 05:28] LABS: ABG ALLEN TEST POS; ABG BASE EXCESS 6.3 mmol/L (-2.0-2.0); ABG HCO3 29.4 mmol/L (22-26)
[2021-02-08] MEDS: VANCOMYCIN IV *PREMIX 1.25 G/250 ML BAG 1.25 G/250 ML PIGGYBACK IV SCH (05:45)
[2021-02-08] MEDS: SOLU-Medrol 40 MG VIAL IVP SCH ×3 (05:45→20:59)
--- NOTE | 2021-02-08 06:08 | RAD ---
HISTORYFollow-up COVID-19STUDYChest AP [id number]/21/2021FINDINGSHeart size is normal. Pneumomediastinum is again identified as is increasing diffuse subcutaneous emphysema. Diffuse bilateral interstitial, ground-glass, and alveola r through are again identified. No pneumothorax or pleural effusion is identified. Bony thorax is unr emarkable.IMPRESSIONNo change pneumomediastinum but with increasing subcutaneous emphysemaNo change d iffuse bilateral interstitial, ground-glass, and alveolar infiltratesElectronically signed by: LUIS E PEGUERO (Feb 08, 2021 06:06:19)
[2021-02-08 06:09] LABS: PLATELET MORPHOLOGY COMMENT NORMAL (NORMAL)
[2021-02-08] MEDS: ZOSYN VIAL 3.375 GRAMS 3.375 G in NS 50 ML IV + SPIKE MINIBAG* 50 ML IV SCH (07:15)
[2021-02-08] MEDS: VOLTAREN 1 % GEL MULTI DOSE TUBE TOP SCH ×3 (07:20→20:59)
[2021-02-08] MEDS ORDERED: LASIX IVP ONE (08:28)
[2021-02-08] MEDS: PULMICORT NEB TX 0.5 MG NEB SCH ×2 (08:40→21:20)
[2021-02-08] MEDS: BROVANA IN SCH ×2 (08:40→21:20)
[2021-02-08] MEDS: AVELOX IV 400 MG/250 ML BAG 400 MG/250 ML PIGGYBACK IV SCH (08:50)
[2021-02-08] MEDS: TRICOR TAB 160 MG PO SCH (08:51)
[2021-02-08] MEDS: TOPROL XL PO SCH (08:51)
[2021-02-08] MEDS: PROTONIX INJ 40 MG VIAL IVP SCH ×2 (08:52→20:32)
[2021-02-08] MEDS: AFRIN NASAL SPRAY SCH ×2 (09:30→20:32)
[2021-02-08] MEDS: VITAMIN D3 125 mcg (5,000 UNITS) PO SCH (09:30)
[2021-02-08] MEDS: VITAMIN A PO SCH (09:30)
[2021-02-08 09:35] LABS: ABG HCO3 29.1 mmol/L (22-26)
[2021-02-08 09:36] LABS: ABG ALLEN TEST POS
--- NOTE | 2021-02-08 10:32 | RAD ---
HISTORYCOVID PNEUMONIA, HYPOXIA, DECREASE LUNG SOUNDSSTUDYCHEST, 1 VIEWCOMPARISONEarlier same dayFINDINGSThe cardiomediastinal silhouette is stable. Similar pneumomediastinum and subcutaneous free gas overlying the chest. Similar bilateral airspace opacities. No definite pneumothorax. The bony thorax appears intact.IMPRESSIONNo significant change. No evidence of pneumothorax.Electronically signed by: MAGDALENA PEGUERO (Feb 08, 2021 10:30:01)
[2021-02-08] MEDS: D5W 1000 ML IV 1,000 ML IV SCH ×2 (10:34→23:22)
[2021-02-08] MEDS: ZITHROMAX INJ 500 MG VIAL 500 MG in D5W 250 ML IV 250 ML IV SCH (10:35)
[2021-02-08 15:02] LABS: CKMB % 3.5 % (<4); TROPONIN I 0.05 ng/mL (0-1.5)
[2021-02-08 15:11] LABS: CREATINE KINASE MB 7.1 ng/mL (0-4.0)
[2021-02-08] MEDS: MORPHINE SULFATE INJ 2 MG INJ IVP PRN ×2 (15:26→23:15)
--- NOTE | 2021-02-08 16:37 | CT ---
HISTORYCOVID PNEUMONIA, HYPOXIASTUDYCTA CHEST IV contrastCOMPARISONCT 01/27/2021TECHNIQUEMultiple axial images of the chest were obtained from the thoracic inlet to the upper abdomen after the administration of IV contrast. 3D reconstructions utilizing axial MIPS imaging was performed and reviewed. Dose reduction techniques including Automated Exposure Control (AEC) and adjustment of mA and kV were utilized.FINDINGSProminent free air in the lower neck and chest wall. This is likely from recurrent pneumomediastinum. There is a very tiny right-sided pneumothorax with less than 1 percent collapse of the right lung, less prominent than seen on prior CT. Left pneumothorax seen previously has resolved.Prominent COPD is seen. There are diffuse interstitial densities in the lungs with areas of alveolar consolidation in the lower lungs. Alveolar consolidation may be atelectasis. There is a rounded density within area of cystic bronchiectasis that has developed in the inferior right upper lobe. This appears to be fluid. It measures 1.5 x 1.2 cm. Other similar areas of new cystic bronchiectasis and fluid are seen in the right upper lobe. Less prominent new cystic bronchiectasis is seen in the left lower lobe without fluid.There is a moderate left pleural effusion that is new since prior CT. No suggestion of CHF. Thoracic aorta is normal in size without evidence of dissection. No mediastinal lymphadenopathy is seen. Motion and streak artifacts limit evaluation of the pulmonary arteries. No pulmonary embolus is seen.IMPRESSIONArtifacts limit evaluation but no pulmonary embolus is seen.Recurrent pneumomediastinum with free air in the chest wall. Very tiny right-sided pneumothorax is less prominent than seen on prior CT. There is resolution of the left-sided pneumothorax since prior CT.Interval development of new cystic bronchiectasis bilaterally. Some improvement of peripheral infiltrative densities seen on prior study but there is new small left pleural effusion.Electronically signed by: Stanford Zaragoza (Feb 08, 2021 16:34:53)
[2021-02-08] MEDS: REQUIP PO SCH (20:31)
[2021-02-08] MEDS: NORVASC TAB 5 MG PO SCH (20:32)
[2021-02-08] MEDS: LIPITOR TAB 20 MG PO SCH (20:32)
[2021-02-08] MEDS: AMBIEN PO PRN (20:32)
[2021-02-08] MEDS: COLACE CAP 100 MG PO SCH (20:32)
[2021-02-08] MEDS ORDERED: PHARMACY COMMENT IV ONE (21:30)
[2021-02-08 21:41] LABS: CKMB % 3.7 % (<4); TROPONIN I 0.05 ng/mL (0-1.5)
[2021-02-09] MEDS: MILK OF MAGNESIA PO SCH ×2 (00:36→20:15)
[2021-02-09] MEDS: ASCORBIC ACID INJ MULTI-DOSE VIAL 1,500 MG in NS 100 ML IV 100 ML IV SCH ×3 (02:44→14:24)
[2021-02-09 02:46] LABS: BASOPHILS % (AUTO) 0.2 % (0.2-1.0); HEMATOCRIT 34.6 % (42.0-54.0); HEMOGLOBIN 11.8 g/dL (13.5-18.0); LYMPHOCYTES # (AUTO) 0.3 X10^3/uL (1.3-2.9); LYMPHOCYTES % (AUTO) 1.5 % (21.0-51.0); MEAN CORPUSCULAR HEMOGLOBIN 30.7 pg (27.0-34.0); MEAN CORPUSCULAR HGB CONC 34.1 g/dL (33.0-35.0); MEAN PLATELET VOLUME 10.2 fL (7.4-11.0); MONOCYTES # (AUTO) 0.7 x10^3/uL (0.3-0.8); MONOCYTES % (AUTO) 3.3 % (0.0-13.0); NEUTROPHILS # (AUTO) 20.4 x10^3/uL (2.2-4.8); PLATELET COUNT 143 X10^3/uL (150.0-450.0); RED BLOOD COUNT 3.84 X10^6/uL (4.7-6.0); RED CELL DISTRIBUTION WIDTH 16.5 % (11.6-16.5); WHITE BLOOD COUNT 21.5 X10^3/uL (3.6-10.0)
[2021-02-09 02:56] LABS: CKMB % 4.4 % (<4); TROPONIN I 0.05 ng/mL (0-1.5)
[2021-02-09 02:58] LABS: CREATINE KINASE MB 6.3 ng/mL (0-4.0)
[2021-02-09 03:09] LABS: ALANINE AMINOTRANSFERASE 66 Units/L (12-78); ALKALINE PHOSPHATASE 57 Units/L (46-116); ASPARTATE AMINO TRANSFERASE 35 Units/L (15-37); BLOOD UREA NITROGEN 54 mg/dL (7-18); CALCIUM 8.1 mg/dL (8.5-10.1); CARBON DIOXIDE 33.9 mmol/L (21-32); CHLORIDE 108 mmol/L (98-107); COR CA(FOR HYPOALB) 9.7 mg/dL (8.5-10.1); COR NA(FOR HYPERGLY) 151 mmol/L (136-145); CREATININE 1.31 mg/dL (0.70-1.30); SODIUM 149 mmol/L (136-145); TOTAL PROTEIN 5.1 g/dL (6.4-8.2); eGFR NON BLACK RACES 58 (>60)
[2021-02-09 04:29] LABS: PLATELET MORPHOLOGY COMMENT NORMAL (NORMAL)
[2021-02-09] MEDS: K-RIDER 10 MEQ/NS 100 ML 10 MEQ/100 ML BAG IV PRN ×2 (05:10→06:14)
[2021-02-09] MEDS: VOLTAREN 1 % GEL MULTI DOSE TUBE TOP SCH ×3 (05:10→20:15)
[2021-02-09] MEDS: SOLU-Medrol 40 MG VIAL IVP SCH ×4 (05:10→20:15)
[2021-02-09 05:24] LABS: ABG BASE EXCESS 8.7 mmol/L (-2.0-2.0)
[2021-02-09 05:27] LABS: ABG ALLEN TEST POS; ABG HCO3 32.8 mmol/L (22-26)
--- NOTE | 2021-02-09 05:59 | RAD ---
PROCEDURE: Chest X-ray 1 View .HISTORY: COVID PNEUMONIA .TECHNIQUE: AP view .COMPARISON: 02/08/2021.TECHNICAL QUALITY: Satisfactory .FINDINGS:Unremarkable cardio mediastinal silhouette.Normal central vascularity.Continued hazy increased density lung bases improved on the right and unchanged on the left. No definite pleural fluid or pneumothorax.IMPRESSION:Improving pneumonia is described above.Electronically signed by: Sergio South (Feb 09, 2021 05:57:02)
[2021-02-09] MEDS: MORPHINE SULFATE INJ 2 MG INJ IVP PRN ×4 (07:49→20:15)
[2021-02-09] MEDS: ZITHROMAX INJ 500 MG VIAL 500 MG in D5W 250 ML IV 250 ML IV SCH (08:03)
[2021-02-09] MEDS: AFRIN NASAL SPRAY SCH ×2 (08:03→20:15)
[2021-02-09] MEDS: AVELOX IV 400 MG/250 ML BAG 400 MG/250 ML PIGGYBACK IV SCH (08:06)
[2021-02-09] MEDS: LOVENOX INJ 60 MG SYR SC SCH (08:07)
[2021-02-09] MEDS: TRICOR TAB 160 MG PO SCH (08:08)
[2021-02-09] MEDS: NORVASC TAB 5 MG PO SCH (08:08)
[2021-02-09] MEDS: VITAMIN A PO SCH (08:08)
[2021-02-09] MEDS: PROTONIX INJ 40 MG VIAL IVP SCH ×2 (08:08→20:15)
[2021-02-09] MEDS: VITAMIN D3 125 mcg (5,000 UNITS) PO SCH (08:09)
[2021-02-09] MEDS ORDERED: NS 250 ML IV 250 ML IV ONE (08:26)
[2021-02-09] MEDS: NS 250 ML IV 250 ML IV PRN (09:18)
[2021-02-09] MEDS: PULMICORT NEB TX 0.5 MG NEB SCH ×2 (09:31→21:03)
[2021-02-09] MEDS: BROVANA IN SCH ×2 (09:31→21:03)
[2021-02-09] MEDS ORDERED: LASIX IVP ONE (10:15)
[2021-02-09] MEDS: BENADRYL INJ 50 MG VIAL IVP PRN (10:21)
[2021-02-09] MEDS: D5W 1000 ML IV 1,000 ML IV SCH (12:12)
[2021-02-09] MEDS: ZOFRAN INJ 4 MG VIAL IVP PRN (17:21)
[2021-02-09] MEDS: ZOSYN VIAL 3.375 GRAMS 3.375 G in NS 50 ML IV + SPIKE MINIBAG* 50 ML IV SCH ×2 (18:10→20:15)
[2021-02-09] MEDS: REQUIP PO SCH (20:15)
[2021-02-09] MEDS: LIPITOR TAB 20 MG PO SCH (20:15)
[2021-02-09] MEDS: COLACE CAP 100 MG PO SCH (20:15)
[2021-02-10] MEDS: LOVENOX INJ 60 MG SYR SC SCH ×3 (01:24→21:44)
[2021-02-10] MEDS: MORPHINE SULFATE INJ 2 MG INJ IVP PRN ×5 (01:30→22:00)
[2021-02-10] MEDS: D5W 1000 ML IV 1,000 ML IV SCH ×3 (01:53→10:16)
[2021-02-10] MEDS: SOLU-Medrol 40 MG VIAL IVP SCH ×4 (03:00→21:00)
[2021-02-10 04:53] LABS: ABG BASE EXCESS 9.8 mmol/L (-2.0-2.0)
[2021-02-10 04:56] LABS: ABG ALLEN TEST POS; ABG HCO3 34.9 mmol/L (22-26)
[2021-02-10 05:00] LABS: BASOPHILS # (AUTO) 0.1 X10^3/uL (0.0-0.1); BASOPHILS % (AUTO) 0.4 % (0.2-1.0); HEMATOCRIT 33.7 % (42.0-54.0); HEMOGLOBIN 11.5 g/dL (13.5-18.0); LYMPHOCYTES # (AUTO) 0.3 X10^3/uL (1.3-2.9); LYMPHOCYTES % (AUTO) 1.4 % (21.0-51.0); MEAN CORPUSCULAR HEMOGLOBIN 30.7 pg (27.0-34.0); MEAN CORPUSCULAR HGB CONC 34.2 g/dL (33.0-35.0); MEAN PLATELET VOLUME 10.4 fL (7.4-11.0); MONOCYTES # (AUTO) 0.9 x10^3/uL (0.3-0.8); MONOCYTES % (AUTO) 3.8 % (0.0-13.0); NEUTROPHILS % (AUTO) 94.4 % (42.0-75.0); PLATELET COUNT 149 X10^3/uL (150.0-450.0); RED BLOOD COUNT 3.75 X10^6/uL (4.7-6.0); RED CELL DISTRIBUTION WIDTH 16.6 % (11.6-16.5); WHITE BLOOD COUNT 24.4 X10^3/uL (3.6-10.0)
[2021-02-10 05:13] LABS: ALANINE AMINOTRANSFERASE 63 Units/L (12-78); ALBUMIN 2.1 g/dL (3.4-5.0); ALKALINE PHOSPHATASE 63 Units/L (46-116); ASPARTATE AMINO TRANSFERASE 35 Units/L (15-37); BLOOD UREA NITROGEN 49 mg/dL (7-18); CALCIUM 8.1 mg/dL (8.5-10.1); CARBON DIOXIDE 35.4 mmol/L (21-32); CHLORIDE 111 mmol/L (98-107); COR CA(FOR HYPOALB) 9.6 mg/dL (8.5-10.1); COR NA(FOR HYPERGLY) 153 mmol/L (136-145); CREATININE 1.15 mg/dL (0.70-1.30); TOTAL PROTEIN 5.1 g/dL (6.4-8.2); eGFR NON BLACK RACES > 60 (>60)
[2021-02-10] MEDS ORDERED: NS 100 ML IV 100 ML ONE (05:21)
[2021-02-10 05:35] LABS: OVALOCYTES PRESENT; PLATELET MORPHOLOGY COMMENT NORMAL (NORMAL)
[2021-02-10 05:40] LABS: SODIUM 150 mmol/L (136-145)
[2021-02-10] MEDS: VOLTAREN 1 % GEL MULTI DOSE TUBE TOP SCH ×3 (05:45→21:00)
[2021-02-10] MEDS: ZOSYN VIAL 3.375 GRAMS 3.375 G in NS 50 ML IV + SPIKE MINIBAG* 50 ML IV SCH ×3 (05:45→22:00)
--- NOTE | 2021-02-10 06:35 | RAD ---
HISTORYCOVID PNEUMONIASTUDYCHEST, 1 [id number]/23/2021.TECHNIQUEAP view of the chestFINDINGSCardiac and mediastinal contours are within normal limits. No significant change in bilateral airspace and interstitial opacities. There is likely a new small right apical pneumothorax with approximately 8 mm of pleural separation. No pleural effusion. This subcutaneous emphysema in the neck and chest appears similar.IMPRESSIONSuspect a new small right apical pneumothorax. Stable pulmonary opacities.Electronically signed by: Bandar Camejo (Feb 10, 2021 06:32:55)
[2021-02-10] MEDS: PROTONIX INJ 40 MG VIAL IVP SCH ×2 (08:13→21:00)
[2021-02-10] MEDS: ZITHROMAX INJ 500 MG VIAL 500 MG in D5W 250 ML IV 250 ML IV SCH (08:44)
[2021-02-10] MEDS: AFRIN NASAL SPRAY SCH ×2 (08:45→21:00)
[2021-02-10] MEDS: TRICOR TAB 160 MG PO SCH (08:45)
[2021-02-10] MEDS: NORVASC TAB 5 MG PO SCH (08:45)
[2021-02-10] MEDS: VITAMIN D3 125 mcg (5,000 UNITS) PO SCH (08:45)
[2021-02-10] MEDS: PULMICORT NEB TX 0.5 MG NEB SCH ×2 (09:20→20:50)
[2021-02-10] MEDS: BROVANA IN SCH ×2 (09:20→20:50)
[2021-02-10] MEDS: BENADRYL INJ 50 MG VIAL IVP PRN (10:15)
[2021-02-10] MEDS: K-RIDER 10 MEQ/NS 100 ML 10 MEQ/100 ML BAG IV PRN ×2 (16:05→17:30)
[2021-02-10] MEDS: AMBIEN PO PRN (20:35)
[2021-02-10] MEDS: COLACE CAP 100 MG PO SCH (21:00)
[2021-02-10] MEDS: LIPITOR TAB 20 MG PO SCH (21:00)
[2021-02-10] MEDS: REQUIP PO SCH (21:00)
[2021-02-10] MEDS: MILK OF MAGNESIA PO SCH (21:00)
[2021-02-11 00:38] LABS: ABG BASE EXCESS 2.8 mmol/L (-2.0-2.0); ABG HCO3 29.7 mmol/L (22-26)
[2021-02-11 00:57] LABS: ABG ALLEN TEST POS
[2021-02-11] MEDS ORDERED: LOPRESSOR INJ 5 MG AMP IVP ONE (01:00)
[2021-02-11] MEDS ORDERED: LOPRESSOR INJ 5 MG AMP ONE (01:03)
[2021-02-11] MEDS ORDERED: NS 1000 ML 1,000 ML ONE (01:15)
[2021-02-11] MEDS ORDERED: NS 500 ML IV 500 ML IV ONE (02:08)
[2021-02-11] MEDS ORDERED: DIPRIVAN PREMIX 1 GRAM IV 1,000 MG/100 ML VIAL ONE (02:08)
[2021-02-11] MEDS ORDERED: DIPRIVAN VIAL 20 ML ONE (02:08)
[2021-02-11] MEDS ORDERED: QUELICIN (OR ANECTINE) ONE (02:10)
[2021-02-11] MEDS ORDERED: DIPRIVAN VIAL IV ONE (02:10)
[2021-02-11] MEDS ORDERED: ZEMURON 100 MG VIAL ONE (02:10)
[2021-02-11] MEDS ORDERED: QUELICIN (OR ANECTINE) IVP ONE (02:10)
[2021-02-11] MEDS ORDERED: LEVOPHED INJ ONE ×3 (03:15→23:35)
[2021-02-11] MEDS ORDERED: D5W 250 ML IV 250 ML IV ONE ×3 (03:15→23:35)
--- NOTE | 2021-02-11 03:19 | RAD ---
HISTORYet tube placement ; gdSTUDYCHEST, 1 [id number]/24/2021FINDINGSThe trachea is midline. Endotracheal tube approximately 2 cm above the evonne. The cardiac silhouette is unremarkable. There is a small right pneumothorax increased in size from prior study. Bilateral airspace and interstitial opacities increased.Small right pneumothorax increased in size from previous 02/10/2021. ABilateral airspace and interstitial opacities increased from previous 02/10/2021 isElectronically signed by: Eyal Davis (Feb 11, 2021 03:17:07)
[2021-02-11 03:59] LABS: ABG BASE EXCESS 2.2 mmol/L (-2.0-2.0); ABG HCO3 29.7 mmol/L (22-26)
[2021-02-11 04:01] LABS: ABG ALLEN TEST POS
[2021-02-11 04:48] LABS: ABG BASE EXCESS 0.7 mmol/L (-2.0-2.0); ABG HCO3 28.7 mmol/L (22-26)
[2021-02-11 04:50] LABS: ABG ALLEN TEST POS
[2021-02-11 06:12] LABS: BASOPHILS # (AUTO) 0.2 X10^3/uL (0.0-0.1); BASOPHILS % (AUTO) 0.6 % (0.2-1.0); EOSINOPHILS % (AUTO) 0.1 % (0.9-2.9); HEMATOCRIT 33.3 % (42.0-54.0); HEMOGLOBIN 11.2 g/dL (13.5-18.0); LYMPHOCYTES # (AUTO) 0.5 X10^3/uL (1.3-2.9); LYMPHOCYTES % (AUTO) 1.6 % (21.0-51.0); MEAN CORPUSCULAR HEMOGLOBIN 30.9 pg (27.0-34.0); MEAN CORPUSCULAR HGB CONC 33.5 g/dL (33.0-35.0); MEAN CORPUSCULAR VOLUME 92.3 fL (80.0-100.0); MEAN PLATELET VOLUME 11.1 fL (7.4-11.0); MONOCYTES # (AUTO) 0.8 x10^3/uL (0.3-0.8); MONOCYTES % (AUTO) 2.6 % (0.0-13.0); NEUTROPHILS # (AUTO) 29.6 x10^3/uL (2.2-4.8); NEUTROPHILS % (AUTO) 95.1 % (42.0-75.0); PLATELET COUNT 138 X10^3/uL (150.0-450.0); RED BLOOD COUNT 3.61 X10^6/uL (4.7-6.0); RED CELL DISTRIBUTION WIDTH 16.9 % (11.6-16.5)
[2021-02-11 06:20] LABS: ABG BASE EXCESS 1.8 mmol/L (-2.0-2.0)
[2021-02-11 06:21] LABS: ABG ALLEN TEST POS; ABG HCO3 30.5 mmol/L (22-26)
[2021-02-11 06:22] LABS: WHITE BLOOD COUNT 31.1 X10^3/uL (3.6-10.0)
[2021-02-11 06:27] LABS: ALANINE AMINOTRANSFERASE 193 Units/L (12-78); ALKALINE PHOSPHATASE 69 Units/L (46-116); ASPARTATE AMINO TRANSFERASE 149 Units/L (15-37); BLOOD UREA NITROGEN 49 mg/dL (7-18); CALCIUM 7.9 mg/dL (8.5-10.1); CARBON DIOXIDE 28.1 mmol/L (21-32); CHLORIDE 109 mmol/L (98-107); COR CA(FOR HYPOALB) 9.5 mg/dL (8.5-10.1); COR NA(FOR HYPERGLY) 149 mmol/L (136-145); CREATININE 1.33 mg/dL (0.70-1.30); SODIUM 145 mmol/L (136-145); eGFR NON BLACK RACES 57 (>60)
[2021-02-11] MEDS: ZOSYN VIAL 3.375 GRAMS 3.375 G in NS 50 ML IV + SPIKE MINIBAG* 50 ML IV SCH ×3 (07:00→22:30)
[2021-02-11] MEDS: LEVOPHED INJ 8 MG in D5W 250 ML IV 242 ML IV PRN ×7 (07:10→23:44)
[2021-02-11 07:23] LABS: BAND NEUTROPHILS % 3 % (0-10); METAMYELOCYTES % 1; SMUDGE CELLS FEW
[2021-02-11 07:24] LABS: ANISOCYTOSIS SLIGHT; OVALOCYTES PRESENT; PLATELET MORPHOLOGY COMMENT NORMAL (NORMAL)
[2021-02-11] MEDS: DIPRIVAN PREMIX 1 GRAM IV 1,000 MG/100 ML VIAL IV PRN ×4 (07:38→23:00)
[2021-02-11] MEDS: ZEMURON 100 MG VIAL 500 MG in NS 500 ML IV 450 ML IV PRN (07:47)
[2021-02-11] MEDS: D5W 1000 ML IV 1,000 ML IV SCH ×2 (07:50→12:54)
[2021-02-11] MEDS: SOLU-Medrol 40 MG VIAL IVP SCH ×4 (07:53→21:05)
[2021-02-11] MEDS: VOLTAREN 1 % GEL MULTI DOSE TUBE TOP SCH ×3 (07:56→21:06)
[2021-02-11] MEDS: NORVASC TAB 5 MG PO SCH (08:08)
[2021-02-11] MEDS: TRICOR TAB 160 MG PO SCH (08:08)
[2021-02-11] MEDS: VITAMIN D3 125 mcg (5,000 UNITS) PO SCH (08:09)
[2021-02-11] MEDS: BROVANA IN SCH ×2 (08:15→20:40)
[2021-02-11] MEDS: PULMICORT NEB TX 0.5 MG NEB SCH ×2 (08:15→20:40)
[2021-02-11] MEDS: LOVENOX INJ 60 MG SYR SC SCH ×2 (08:21→21:04)
[2021-02-11] MEDS: AFRIN NASAL SPRAY SCH ×2 (08:21→20:52)
[2021-02-11] MEDS: PROTONIX INJ 40 MG VIAL IVP SCH ×2 (08:21→21:05)
[2021-02-11] MEDS: ZITHROMAX INJ 500 MG VIAL 500 MG in D5W 250 ML IV 250 ML IV SCH (08:22)
[2021-02-11] MEDS ORDERED: NS 1000 ML 1,000 ML IV ONE ×2 (09:36→09:38)
[2021-02-11] MEDS ORDERED: PHARMACY CONSULT - VANCOMYCIN XX SCH (10:00)
[2021-02-11] MEDS ORDERED: XYLOCAINE 1 % (PLAIN) ONE (10:07)
[2021-02-11] MEDS ORDERED: STERILE WATER IRRIGATION IR ONE ×2 (10:08→13:11)
[2021-02-11] MEDS ORDERED: VANCOMYCIN HCL ONE (10:32)
[2021-02-11] MEDS: VANCOMYCIN HCL 500 MG, VANCOMYCIN HCL 1 G in D5W 250 ML IV 250 ML IV SCH ×2 (12:29→21:05)
--- NOTE | 2021-02-11 13:48 | DR.CONSULT ---
CONSULT Consultation for Day of: Date: 02/11/21 Chief Complaint Chief Complaint: This 71 year old presented over two weeks ago with respiratory distress and was diagnosed with Covid pneumonia. He has been on BiPAP and treated with steroids, antibiotics, and Remdesivir.Last night he decompensated and required intubation. I had seen him originally shortly after admission when he had pneumomediastinum and questionable bilateral small pneumothorases. These were treated with observation and resolved on chest x-ray. At that time he had a small amount of crepitance . Early this morning he did, said and required intubation. Post intubation chest x-ray showed a small right-sided pneumothorax. He was in no distress but did have higher than normal peak inspiratory pressures. Because of the stiffness of his lungs I observed him and then repeated a chest x-ray which showed a markedly enlarged right sided pneumothorax. Allergies Allergies Allergy/AdvReac Type Severity Reaction Status Date / Time No Known Drug Allergies Allergy Verified 01/26/21 08:28 History of Present Illness History of Present Illness: see reina Past Medical History Past Medical History: Arthritis and Hypertension Social History Does patient currently use any type of tobacco product: No Have you used tobacco products in the last 12 months: No Type of Tobacco Use: None Does any household member use tobacco: No Alcohol Use: None Drug Use: None Medications Home Medications: No Known Drug Allergies Allergy (Verified 01/26/21 08:28) CONTINUE taking the following medications atorvastatin 20 mg PO HS 01/26/21 [History] doxycycline hyclate 100 mg PO BID 01/26/21 [History] eszopiclone 3 mg PO HS 01/26/21 [History] folic acid 1 mg PO DAILY 01/26/21 [History] methotrexate sodium 15 mg PO WEEKLY 01/26/21 [History] ondansetron HCl 4 mg PO Q6H PRN 01/26/21 [History] pantoprazole 40 mg PO DAILY 01/26/21 [History] prednisone 5 mg PO DAILY PRN 01/26/21 [History] ropinirole 2 mg PO HS 01/26/21 [History] tramadol 50 mg PO BID PRN 01/26/21 [History] See chart for list of inpatient drugs administered. Review of Systems Constitutional: Other (Patient intubated and cannot give history. See previous history and physical and previous consultation by myself. ) Physical Exam Vital Signs: Temperature 96.6 F Pulse Rate [Right Brachial] 69 Pulse Rate 73 Respiratory Rate 30 Blood Pressure [Right Arm] 104/65 Blood Pressure 117/55 O2 Sat by Pulse Oximetry 81 Oriented: Other (Patient intubated with stable Vital Signs. No obvious evidence crepitance , Decreased breath sounds on the right side compared to the left. Patient is markedly edematous. ) Plan Plan: Patient with new right-sided enlarging pneumothorax. Will require right chest tube placement. This procedure, risk and benefits discussed with his at the bedside and she agrees.
--- NOTE | 2021-02-11 15:18 | RAD ---
EXAM: CHEST X-RAYHISTORY: COVID-19 positive. Central line placement.TECHNIQUE: AP chest x-ray dated 05/13/2021 at 1:11 PM.COMPARISON: CXR dated February 11, 2021 at 12:23 PM.FINDINGS:There is interval placement of a right-sided chest tube with the distal tip in the right apical hemithorax. There is interval resolution of the previously seen large right pneumothorax. An endotracheal tube is noted in situ with the distal tip approximately 5.7 cm above the evonne (adequate position).There is evidence for cardiomegaly. The pulmonary vascularity and interstitial markings are diffusely prominent, consistent with mild to moderate CHF or volume overload in the appropriate clinical setting; differential diagnosis includes (but is not limited to) mild bronchitis and interstitial pneumonia in the appropriate clinical setting.There is no gross focal lung consolidation, or pleural effusion seen. The visualized bony structures are within normal limits.IMPRESSION:1. Interval placement of a right-sided chest tube with the distal tip in the right apical hemithorax.2. Interval resolution of the previously seen large right pneumothorax. An endotracheal tube is noted in situ with the distal tip approximately 5.7 cm above the evonne (adequate position).3. Findings consistent with mild to moderate CHF or volume overload in the appropriate clinical setting; DDX includes (but is not limited to) mild bronchitis and interstitial pneumonia in the appropriate clinical setting.4. Recommend clinical correlation and appropriate follow-up CXR evaluation to ensure interval clearance as clinically warranted.5. Consider follow-up noncontrast chest CT to rule out Covid pneumonia if clinically warranted.Electronically signed by: lKaus Eng (Feb 11, 2021 15:16:51)
--- NOTE | 2021-02-11 15:38 | RAD ---
HISTORYFOLLOW UP PNEMOSTUDYCHEST, 1 [id number]/25/2021, the study from 10 hours agoFINDINGSRight pneumothorax is significantly larger. There may be a shift of the midline toward the left indicating a tension component.Bilateral lung disease is consistent with pneumonia.Heart size is normal.Bones are unremarkable.The endotracheal tube is anatomic in position in the trachea. EKG leads are noted.IMPRESSION1. Tension right pneumothorax2. Unchanged pneumoniaElectronically signed by: Sang Flores (Feb 11, 2021 15:37:23)
--- NOTE | 2021-02-11 16:18 | DR.OPNOTE ---
OP NOTE Pre-Op Diagnosis: Right sided pneumothorax Post-Op Diagnosis: same Procedure Date Date Of Procedure: 02/11/21 Procedure: After consent obtained from the patient's and the right side confirmed ,the right chest was prepped and draped in sterile fashion. The skin underlying the crease below the right pectoralis muscle at the anterior axillary line was infiltrated with 10 cc's of 1% Xylocaine. A 3 centimeter incision was made and dissection carried down to the ribs with a hemostat and a long clamp used to puncture through the chest wall and pleura into the right chest with relief of pneumothorax and air rushed out . A 32 [place] chest tube placed and secured to the skin and connected to the Pleura-vac .Post-procedure chest x-ray shows resolution of the pneumothorax on the right with excellent placement of the chest tube . Type of Anesthesia: Local (10 cc 1% Xylocaine ) Findings: as above Specimen/Pathology: none EBL: minimal Drains/Tubes Placed: Chest Tube (32 Fr.) Complications:: none Needle/Sponge Count:: correct Disposition/Condition: Pt. tolerated procedure without difficulty. CXR post procedure shows resolution of right side pneumothorax.
[2021-02-11] MEDS: REQUIP PO SCH (20:52)
[2021-02-11] MEDS: COLACE CAP 100 MG PO SCH (20:52)
[2021-02-11] MEDS: MILK OF MAGNESIA PO SCH (20:52)
[2021-02-11] MEDS: LIPITOR TAB 20 MG PO SCH (20:52)
[2021-02-11] MEDS ORDERED: NS 250 ML IV 250 ML IV ONE (23:12)
[2021-02-12] MEDS: D5W 1000 ML IV 1,000 ML IV SCH (01:32)
[2021-02-12] MEDS: SOLU-Medrol 40 MG VIAL IVP SCH ×4 (03:15→20:07)
[2021-02-12] MEDS ORDERED: D5W 250 ML IV 250 ML IV ONE (04:04)
[2021-02-12] MEDS: LEVOPHED INJ 8 MG in D5W 250 ML IV 242 ML IV PRN ×3 (04:37→16:08)
[2021-02-12] MEDS: DIPRIVAN PREMIX 1 GRAM IV 1,000 MG/100 ML VIAL IV PRN ×4 (04:37→21:21)
[2021-02-12 04:43] LABS: ABG ALLEN TEST POS; ABG BASE EXCESS -1.1 mmol/L (-2.0-2.0); ABG HCO3 28.5 mmol/L (22-26)
[2021-02-12] MEDS: ZEMURON 100 MG VIAL 500 MG in NS 500 ML IV 450 ML IV PRN (05:25)
[2021-02-12] MEDS: ZOSYN VIAL 3.375 GRAMS 3.375 G in NS 50 ML IV + SPIKE MINIBAG* 50 ML IV SCH ×3 (05:25→22:21)
[2021-02-12] MEDS: VOLTAREN 1 % GEL MULTI DOSE TUBE TOP SCH ×3 (05:27→21:20)
--- NOTE | 2021-02-12 06:23 | RAD ---
HISTORYSOB, VENTSTUDYCHEST, 1 [id number]/25/2021FINDINGSExtensive chest wall and subcutaneous emphysema is new, possibly from barotrauma. Linear lucency in the right superior mediastinum and near the left heart border could be pneumomediastinum. This is also new.The underlying lung disease is probably unchanged. This is quirino tible with pneumonia. No obvious pneumothorax or pleural effusion.Heart size is normal.Bones are unre markable.The endotracheal tube is anatomic in position in the trachea. A right chest tube is present with the tip at the right apex. EKG leads are noted.IMPRESSION1. New and progression of pneumomediast inum and subcutaneous emphysema2. Unchanged pneumoniaElectronically signed by: Sang Flores (Feb 12, 2021 06:21:50)
[2021-02-12 07:13] LABS: ALBUMIN 1.8 g/dL (3.4-5.0); ALKALINE PHOSPHATASE 124 Units/L (46-116); BASOPHILS # (AUTO) 0.1 X10^3/uL (0.0-0.1); BASOPHILS % (AUTO) 0.5 % (0.2-1.0); BLOOD UREA NITROGEN 69 mg/dL (7-18); CARBON DIOXIDE 25.7 mmol/L (21-32); COR CA(FOR HYPOALB) 8.8 mg/dL (8.5-10.1); CREATININE 3.17 mg/dL (0.70-1.30); EOSINOPHILS # (AUTO) 0.2 x10^3/uL (0.0-0.2); EOSINOPHILS % (AUTO) 0.8 % (0.9-2.9); HEMATOCRIT 29.7 % (42.0-54.0); HEMOGLOBIN 9.8 g/dL (13.5-18.0); LYMPHOCYTES # (AUTO) 0.4 X10^3/uL (1.3-2.9); LYMPHOCYTES % (AUTO) 1.4 % (21.0-51.0); MEAN CORPUSCULAR HEMOGLOBIN 30.9 pg (27.0-34.0); MEAN CORPUSCULAR HGB CONC 33.1 g/dL (33.0-35.0); MEAN CORPUSCULAR VOLUME 93.2 fL (80.0-100.0); MEAN PLATELET VOLUME 11.1 fL (7.4-11.0); MONOCYTES # (AUTO) 0.2 x10^3/uL (0.3-0.8); MONOCYTES % (AUTO) 0.6 % (0.0-13.0); NEUTROPHILS # (AUTO) 25.6 x10^3/uL (2.2-4.8); NEUTROPHILS % (AUTO) 96.7 % (42.0-75.0); PLATELET COUNT 50 X10^3/uL (150.0-450.0); RED BLOOD COUNT 3.19 X10^6/uL (4.7-6.0); RED CELL DISTRIBUTION WIDTH 16.5 % (11.6-16.5); TOTAL PROTEIN 4.5 g/dL (6.4-8.2); WHITE BLOOD COUNT 26.5 X10^3/uL (3.6-10.0); eGFR NON BLACK RACES 21 (>60)
[2021-02-12 07:25] LABS: BAND NEUTROPHILS % 8 % (0-10); METAMYELOCYTES % 2
[2021-02-12 07:26] LABS: ANISOCYTOSIS SLIGHT; OVALOCYTES PRESENT; PLATELET MORPHOLOGY COMMENT NORMAL (NORMAL); SMUDGE CELLS FEW
[2021-02-12 07:58] LABS: CHLORIDE 102 mmol/L (98-107); COR NA(FOR HYPERGLY) 140 mmol/L (136-145); SODIUM 136 mmol/L (136-145)
[2021-02-12 08:45] LABS: ALANINE AMINOTRANSFERASE > 10000 Units/L (12-78); ASPARTATE AMINO TRANSFERASE > 10000 Units/L (15-37)
[2021-02-12] MEDS: BROVANA IN SCH ×2 (09:32→20:40)
[2021-02-12] MEDS: PULMICORT NEB TX 0.5 MG NEB SCH ×2 (09:32→20:40)
[2021-02-12] MEDS: LOVENOX INJ 60 MG SYR SC SCH (10:20)
[2021-02-12] MEDS: PROTONIX INJ 40 MG VIAL IVP SCH ×2 (10:24→20:08)
[2021-02-12] MEDS: VANCOMYCIN IV *PREMIX 1.25 G/250 ML BAG 1.25 G/250 ML PIGGYBACK IV SCH (10:30)
[2021-02-12] MEDS ORDERED: BUTT CREAM (COMPOUND) ONE (11:03)
[2021-02-12] MEDS: AFRIN NASAL SPRAY SCH ×3 (12:15→22:00)
[2021-02-12] MEDS: NORVASC TAB 5 MG PO SCH (12:15)
[2021-02-12] MEDS: SODIUM BICARBONATE IV SCH ×4 (12:16→18:20)
[2021-02-12] MEDS: TRICOR TAB 160 MG PO SCH (12:16)
[2021-02-12] MEDS: LR IV SCH ×4 (12:16→18:20)
[2021-02-12] MEDS: VITAMIN D3 125 mcg (5,000 UNITS) PO SCH (12:16)
--- NOTE | 2021-02-12 14:12 | NOTE.SOAP ---
Soap Note Note for Day of Date of Exam: 02/12/21 Subjective Data Subjective Data: Right chest tube in place. Patient with Rising creatinine and very little urine output over the last 12 hours. Objective Data Pulse Rate: 82 Objective Data: Significant crepitance of the chest wall bilaterally. Chest x- ray without pneumothorax, small pneumomediastinum. Assessment Assessment: patient with covid pneumonia. Right sided pneumothorax resolved with chest tube. Plan Plan: Continue intensive care . Chest tube remains on suction.
[2021-02-12] MEDS ORDERED: LEVOPHED INJ ONE (14:48)
--- NOTE | 2021-02-12 15:04 | PCM.PROG ---
Progress Note - Progress Note for Day of Date of Exam: 02/11/21 - Subjective Subjective: IS A 71 YEAR OLD W/M, PATIENT OF . HE WAS ADMITTED ON 01/26 FOR TREATMENT OF COVID PNEUMONIA AND HYPOXIA. HE HAD BEEN UTILIZING THE BIPAP. AT APROXIMATELY 0025, NURSING STAFF CHECKED ON PATIENT DUE TO BIPAP MACHINE ALARMING. SHE FOUND PATIENT WITHOUT MASK ON, WITH A SATURATION OF 64%, HR 67, RR 45. SATURATIONS FAILED TO INCREASE AFTER MASK WAS REAPPLIED. HEART RATE INCREASED TO THE 190s. EKG REVEALED SVT. DECISION WAS EVENTUALLY MADE TO INTUBATE PATIENT. HE WAS STARTED ON A LEVOPHED DRIP DUE TO HYPOTENSION DESPITE FLUID BOLUSES. ON MORNING ROUNDS, HIS VENT SETTINGS ARE: A/C, RATE 30, TIDAL VOLUME 500, PEAK FLOW 65, PEEP 14, FI02 100. HIS VITALS ARE 97.9-81HR-30RR -83%-94/60. SINCE INTUBATION, OXYGEN SATURATIONS HAVE BEEN 74-83%. LABS WERE OBTAINED. ABNORMAL LAB VALUES INCLUDE THE FOLLOWING: WBC 31.1, RBC 3.61, HGB 11.2, HCT 33.3, PLT COUNT 138, D-DIMER 1.61, CHLORIDE 109, BUN 49, CREATININE 1.33, GLUCOSE 253, CALCIUM 7.9, TOTAL BILI 1.10, AST 149, ALT 193, CRP 12.20, TOTAL PROTEIN 5.0, ALBUMIN 2.0. BLOOD AND SPUTUM CULTURES ARE PENDING. CHEST XRAY THIS MORNING REVEALED: trachea is midline. Endotracheal tube approximately 2 cm above the evonne. The cardiac silhouette is unremarkable. There is a small right pneumothorax increased in size from prior study. Bilateral airspace and interstitial opacities increased. , GENERAL SURGEON WAS CONSULTED DUE TO INCREASED PNEUMOTHORAX. HE REPEATED A CHEST XRAY AT NOON. IT REVEALED: Right pneumothorax is significantly larger. There may be a shift of the midline toward the left indicating a tension component. Bilateral lung disease is consistent with pneumonia. Heart size is normal. Bones are unremarkable. The endotracheal tube is anatomic in position in the trachea. EKG leads are noted. IN SERTED A CHEST TUBE. AFTER INSERTION OF CHEST TUBE, PATIENTS VITAL SIGNS BEGAN TO STABLILIZE. WE BOLUSED HIM WITH TWO LITERS OF NORMAL SALINE THIS MORNING AND ADDED VANCOMYCIN. OTHERWISE, WE WILL CONTINUE WITH STEROIDS, PPIs, LEVOPHED, POTASSIUM REPLACEMENT, SEDATION, AND CURRENT PLAN OF CARE. PATIENT IS IN CRITICAL CONDITION. SPOUSE IS AT BEDSIDE AND IS MADE INFORMED OF PATIENTS CONDITION. WE WILL CONTINUE TO MONITOR LABS AND CHEST XRAY AND MAKE CHANGES APPROPRIATE. TIME SPENT ON CLINICAL ASSESSMENT, REVIEWING LABS AND IMAGING, DECISION MAKING, AND DOCUMENTATION GREATER THAN 75 MINUTES. - Past Medical Family Social History Past Med/Fam/Surg Hx: No changes since H&P Allergies: Allergies No Known Drug Allergies Allergy (Verified 01/26/21 08:28) - Review of Systems ROS: No change since H&P - Vital Signs and I&O's Vital Signs: Temperature 97.4 F Pulse Rate [Right Brachial] 69 Pulse Rate 82 Respiratory Rate 22 Blood Pressure [Right Arm] 104/65 Blood Pressure 142/62 O2 Sat by Pulse Oximetry 92 Intake and Output: Intake & Output 02/10/21 02/11/21 02/12/21 02/13/21 11:59 11:59 11:59 11:59 Intake Total 2066 / 2066 4605 / 4605 5365.0 / 5365.0 Output Total 1850 / 1850 1150 / 1150 1428 / 1428 Balance 216 / 216 3455 / 3455 3937.0 / 3937.0 - Physical Exam Oriented: Other (Patient intubated with stable Vital Signs. No obvious evidence crepitance , Decreased breath sounds on the right side compared to the left. Patient is markedly edematous.) Eyes: Normal Ear: Normal Nose: Normal Throat: Normal Respiratory: Diminished Cardiovascular: Other (The patient has crepitus of both sides of his chest.) : Normal Auscultation: Bowel Sounds: Normal Palpation: Normal Tenderness: Normal Skin: Normal Musculoskeletal: Normal Psychiatric: Other (cannot assess) Speech Pattern: Artificially Ventilated - Laboratory and Diagnostics Result Diagrams: 02/12/21 06:46 02/12/21 06:46 Labs: 02/12/21 00:30 Sputum - Endotracheal Wash - Final 01/26/21 08:37 Blood Blood Culture - Final 01/26/21 08:37 Blood Blood Culture - Final Laboratory WBC 26.5 X10^3/uL (3.6-10.0) H 02/12/21 06:46 RBC 3.19 X10^6/uL (4.7-6.0) L 02/12/21 06:46 Hgb 9.8 g/dL (13.5-18.0) L 02/12/21 06:46 Hct 29.7 % (42.0-54.0) L 02/12/21 06:46 MCV 93.2 fL (80.0-100.0) 02/12/21 06:46 MCH 30.9 pg (27.0-34.0) 02/12/21 06:46 MCHC 33.1 g/dL (33.0-35.0) 02/12/21 06:46 RDW 16.5 % (11.6-16.5) 02/12/21 06:46 Plt Count 50 X10^3/uL (150.0-450.0) L 02/12/21 06:46 Plt Count Comment Decreased (ADEQUATE) 02/12/21 06:46 MPV 11.1 fL (7.4-11.0) H 02/12/21 06:46 Neut % (Auto) 96.7 % (42.0-75.0) H 02/12/21 06:46 Lymph % (Auto) 1.4 % (21.0-51.0) L 02/12/21 06:46 [place] % (Auto) 0.6 % (0.0-13.0) 02/12/21 06:46 Eos % (Auto) 0.8 % (0.9-2.9) L 02/12/21 06:46 Baso % (Auto) 0.5 % (0.2-1.0) 02/12/21 06:46 Neut # (Auto) 25.6 x10^3/uL (2.2-4.8) H 02/12/21 06:46 Lymph # (Auto) 0.4 X10^3/uL (1.3-2.9) L 02/12/21 06:46 [place] # (Auto) 0.2 x10^3/uL (0.3-0.8) L 02/12/21 06:46 Eos # (Auto) 0.2 x10^3/uL (0.0-0.2) 02/12/21 06:46 Baso # (Auto) 0.1 X10^3/uL (0.0-0.1) 02/12/21 06:46 Absolute Nucleated RBC 0.7 /100WBC 02/12/21 06:46 Total Counted 100 02/12/21 06:46 Neutrophils % (Manual) 87 % (39-76) H 02/12/21 06:46 Band Neutrophils % 8 % (0-10) 02/12/21 06:46 Lymphocytes % (Manual) 1 % (13-43) L 02/12/21 06:46 Monocytes % (Manual) 2 % (4-9) L 02/12/21 06:46 Metamyelocytes % 2 02/12/21 06:46 Nucleated RBCs 1 02/12/21 06:46 Smudge Cells Few 02/12/21 06:46 Plt Morphology Comment Normal (NORMAL) 02/12/21 06:46 RBC Morphology Abnormal (NORMAL) 02/12/21 06:46 Anisocytosis Slight A 02/12/21 06:46 Ovalocytes Present 02/12/21 06:46 [place] Cells Present 01/31/21 04:45 D-Dimer 2.86 ug/ml (0.0-0.57) H* 02/12/21 06:46 Sample Site Rrad 02/12/21 04:40 ABG pH 7.200 (7.35-7.45) L 02/12/21 04:40 ABG pCO2 73.0 mmHg (35.0-45.0) H* 02/12/21 04:40 ABG pO2 75.0 mmHg (80.0-100.0) L 02/12/21 04:40 ABG HCO3 28.5 mmol/L (22-26) H 02/12/21 04:40 ABG O2 Saturation 91.0 % (90-100) 02/12/21 04:40 ABG Base Excess -1.1 mmol/L (-2.0-2.0) 02/12/21 04:40 Francis Test Pos 02/12/21 04:40 A-a Gradient 547.0 mmHg 02/12/21 04:40 FiO2 100.0 02/12/21 04:40 Blood Gas Comments Kimberley well ms 02/12/21 04:40 Sodium 136 mmol/L (136-145) 02/12/21 06:46 Corrected Sodium 140 mmol/L (136-145) 02/12/21 06:46 Potassium 5.5 mmol/L (3.5-5.1) H 02/12/21 06:46 Chloride 102 mmol/L (98-107) 02/12/21 06:46 Carbon Dioxide 25.7 mmol/L (21-32) 02/12/21 06:46 BUN 69 mg/dL (7-18) H 02/12/21 06:46 Creatinine 3.17 mg/dL (0.70-1.30) H 02/12/21 06:46 Est GFR (MDRD) Af Amer 25 (>60) L 02/12/21 06:46 Est GFR (MDRD) Non-Af 21 (>60) L 02/12/21 06:46 Glucose 248 mg/dL (65-99) H 02/12/21 06:46 Lactic Acid 1.8 mmol/L (0.4-2.0) 01/31/21 04:45 Calcium 7.0 mg/dL (8.5-10.1) L 02/12/21 06:46 Corrected Calcium 8.8 mg/dL (8.5-10.1) 02/12/21 06:46 Magnesium 2.4 mg/dL (1.7-2.9) 02/07/21 06:40 Ferritin 3928 ng/mL (26-388) H 01/26/21 07:56 Total Bilirubin 2.90 mg/dL (0.2-1.0) H 02/12/21 06:46 AST > 08128 Units/L (15-37) H 02/12/21 06:46 ALT > 76766 Units/L (12-78) H 02/12/21 06:46 Alkaline Phosphatase 124 Units/L (46-116) H 02/12/21 06:46 Creatine Kinase 144 Units/L (39-308) 02/09/21 02:05 CK-MB (CK-2) 6.3 ng/mL (0-4.0) H* 02/09/21 02:05 CK/CKMB % Calc 4.4 % (<4) 02/09/21 02:05 Troponin I 0.05 ng/mL (0-1.5) 02/09/21 02:05 C-Reactive Protein 44.00 mg/L (0-3.0) H 02/12/21 06:46 B-Natriuretic Peptide 264 pg/mL (0-79) H 02/12/21 06:46 Total Protein 4.5 g/dL (6.4-8.2) L 02/12/21 06:46 Albumin 1.8 g/dL (3.4-5.0) L 02/12/21 06:46 Globulin 2.7 g/dL (2.5-4.5) 02/12/21 06:46 Albumin/Globulin Ratio 0.7 Ratio (1.1-2.1) L 02/12/21 06:46 Specimen Type Catherized urine 02/06/21 09:30 Urine Color Yellow (YELLOW) 02/06/21 09:30 Urine Appearance Clear (CLEAR) 02/06/21 09:30 Urine pH 7.0 (5.0 - 8.0) 02/06/21 09:30 Ur Specific [place] 1.010 (1.000-1.030) 02/06/21 09:30 Urine Protein 1+ (NEGATIVE) 02/06/21 09:30 Urine Glucose (UA) Negative (NEGATIVE) 02/06/21 09:30 Urine Ketones Negative (NEGATIVE) 02/06/21 09:30 Urine Occult Blood 2+ (NEGATIVE) 02/06/21 09:30 Urine Nitrite Negative (NEGATIVE) 02/06/21 09:30 Urine Bilirubin Negative (NEGATIVE) 02/06/21 09:30 Urine Urobilinogen Normal (NORMAL) 02/06/21 09:30 Ur Leukocyte Esterase Negative (NEGATIVE) 02/06/21 09:30 Urine RBC 3-5 /HPF (0-3) A 02/06/21 09:30 Urine WBC 0-2 /HPF (0-5) 02/06/21 09:30 Ur Squamous Epith Cells Rare /HPF (NEGATIVE) 02/06/21 09:30 Urine Bacteria Trace /HPF (NEGATIVE) 02/06/21 09:30 Ur Culture Indicated? No/not indicated 02/06/21 09:30 Vancomycin Trough 22.9 ug/mL (15-20) H* 02/07/21 14:33 SARS CoV-2 RNA Rapid MAGED Positive (NEGATIVE) A 01/27/21 10:27 - Plan (1) Pneumonia due to COVID-19 virus Status: Acute Plan: MECHANICAL VENT. IV ATBX, SOLU MEDROL. IV HYDRATION. STRICT I&OS, CARDIAC MONITORING. AM, ABG, CXR (2) Hypoxia Status: Acute
--- NOTE | 2021-02-12 15:25 | PCM.PROG ---
Progress Note - Progress Note for Day of Date of Exam: 02/12/21 - Subjective Subjective: IS A 71 YEAR OLD W/M, PATIENT OF . HE WAS ADMITTED ON 01/26 FOR TREATMENT OF COVID PNEUMONIA AND HYPOXIA. HE WAS INTUBATED YESTERDAY. TODAY, HE REMAINS IN THE INTENSIVE CARE UNIT ON THE MECHANICAL VENT. HIS VENT SETTINGS THIS MORNING ARE: A/C, RATE 22, TIDAL VOLUME 500, PEAK FLOW 65, PEEP 14, FI02 100. HIS SATURATION HAVE BEEN 92-94% THIS MORNING AND THROUGHOUT THE NIGHT. STAFF REPORTS THAT HE HAS HAD VERY MINIMAL OUTPUT OVER THE LAST 12 HOURS. HIS VITALS ARE 97.4-76-22-93%-142/62. ON EXAMINATION, HEART IS REGULAR IN RATE AND RHYTHM. BILATERAL LUNGS ARE NOTED TO HAVE DIMINISHED LUNG SOUNDS THROUGHOUT. SIGNIFICANT CREPITANCE OF THE CHEST WALL BILATERALLY. RIGHT SIDED CHEST TUBE IN PLACE. ABDOMEN IS ROUND, SOFT, AND NOTED TO HAVE HYPOACTIVE BOWEL SOUNDS IN ALL QUADRANTS. WELSH CATHETER NOTED TO BEDSIDE DRAINAGE WITH VERY MINIMAL OUTPUT. LABS WERE OBTAINED. ABNORMAL LAB VALUES INCLUDE THE FOLLOWING: WBC 26.5, RBC 3.19, HGB 9.8, HCT 29.7, PLT COUNT 50, D-DIMER 2.86, POTASSIUM 5.5, BUN 69, CREATININE 3.17, GLUCOSE 248, TOTAL BILI 2.90, AST AND ALT >10,000, ALK PHOS 124, CRP 44.0, BNP 264, TOTAL PROTEIN 4.5, ALBUMIN 1.8. ABG REVEALED: PH 7.200, PC02 73, P02 75, HC03 28.5, 02 SAT 91, A-A GRADIENT 547, FI02 100. BLOOD AND SPUTUM CULTURES ARE PENDING. CHEST XRAY THIS MORNING REVEALED: 1. New and progression of pneumomediastinum and subcutaneous emphysema 2. Unchanged pneumonia. DUE TO RISING KIDNEY FUNCTION, WE WILL CHANGE IV FLUIDS TO LR WITH 2 AMPS OF BICARB IN EACH LITER AT 100 ML/HR. OTHERWISE, WE WILL CONTINUE WITH STEROIDS, IV ANTIBIOTICS, PPIs, LEVOPHED, POTASSIUM REPLACEMENT, SEDATION, AND CURRENT PLAN OF CARE. PATIENT IS IN CRITICAL CONDITION. WE WILL CONTINUE TO MONITOR LABS AND CHEST XRAY AND MAKE CHANGES APPROPRIATE. TIME SPENT ON CLINICAL ASSESSMENT, REVIEWING LABS AND IMAGING, DECISION MAKING, AND DOCUMENTATION GREATER THAN 75 MINUTES. - Past Medical Family Social History Past Med/Fam/Surg Hx: No changes since H&P Allergies: Allergies No Known Drug Allergies Allergy (Verified 01/26/21 08:28) - Review of Systems ROS: No change since H&P - Vital Signs and I&O's Vital Signs: Temperature 97.4 F Pulse Rate [Right Brachial] 69 Pulse Rate 82 Respiratory Rate 22 Blood Pressure [Right Arm] 104/65 Blood Pressure 142/62 O2 Sat by Pulse Oximetry 92 Intake and Output: Intake & Output 02/10/21 02/11/21 02/12/21 02/13/21 11:59 11:59 11:59 11:59 Intake Total 2066 / 2066 4605 / 4605 5365.0 / 5365.0 Output Total 1850 / 1850 1150 / 1150 1428 / 1428 Balance 216 / 216 3455 / 3455 3937.0 / 3937.0 - Physical Exam Oriented: Other (Patient intubated with stable Vital Signs. No obvious evidence crepitance , Decreased breath sounds on the right side compared to the left. Patient is markedly edematous.) Eyes: Normal Ear: Normal Nose: Normal Throat: Normal Respiratory: Diminished Cardiovascular: Other (The patient has crepitus of both sides of his chest.) : Normal Auscultation: Bowel Sounds: Normal Tenderness: Normal Skin: Normal Musculoskeletal: Normal Psychiatric: Other (cannot assess) Affect: Anxious Speech Pattern: Artificially Ventilated - Laboratory and Diagnostics Result Diagrams: 02/12/21 06:46 02/12/21 06:46 Labs: 02/12/21 00:30 Sputum - Endotracheal Wash - Final 01/26/21 08:37 Blood Blood Culture - Final 01/26/21 08:37 Blood Blood Culture - Final Laboratory WBC 26.5 X10^3/uL (3.6-10.0) H 02/12/21 06:46 RBC 3.19 X10^6/uL (4.7-6.0) L 02/12/21 06:46 Hgb 9.8 g/dL (13.5-18.0) L 02/12/21 06:46 Hct 29.7 % (42.0-54.0) L 02/12/21 06:46 MCV 93.2 fL (80.0-100.0) 02/12/21 06:46 MCH 30.9 pg (27.0-34.0) 02/12/21 06:46 MCHC 33.1 g/dL (33.0-35.0) 02/12/21 06:46 RDW 16.5 % (11.6-16.5) 02/12/21 06:46 Plt Count 50 X10^3/uL (150.0-450.0) L 02/12/21 06:46 Plt Count Comment Decreased (ADEQUATE) 02/12/21 06:46 MPV 11.1 fL (7.4-11.0) H 02/12/21 06:46 Neut % (Auto) 96.7 % (42.0-75.0) H 02/12/21 06:46 Lymph % (Auto) 1.4 % (21.0-51.0) L 02/12/21 06:46 [place] % (Auto) 0.6 % (0.0-13.0) 02/12/21 06:46 Eos % (Auto) 0.8 % (0.9-2.9) L 02/12/21 06:46 Baso % (Auto) 0.5 % (0.2-1.0) 02/12/21 06:46 Neut # (Auto) 25.6 x10^3/uL (2.2-4.8) H 02/12/21 06:46 Lymph # (Auto) 0.4 X10^3/uL (1.3-2.9) L 02/12/21 06:46 [place] # (Auto) 0.2 x10^3/uL (0.3-0.8) L 02/12/21 06:46 Eos # (Auto) 0.2 x10^3/uL (0.0-0.2) 02/12/21 06:46 Baso # (Auto) 0.1 X10^3/uL (0.0-0.1) 02/12/21 06:46 Absolute Nucleated RBC 0.7 /100WBC 02/12/21 06:46 Total Counted 100 02/12/21 06:46 Neutrophils % (Manual) 87 % (39-76) H 02/12/21 06:46 Band Neutrophils % 8 % (0-10) 02/12/21 06:46 Lymphocytes % (Manual) 1 % (13-43) L 02/12/21 06:46 Monocytes % (Manual) 2 % (4-9) L 02/12/21 06:46 Metamyelocytes % 2 02/12/21 06:46 Nucleated RBCs 1 02/12/21 06:46 Smudge Cells Few 02/12/21 06:46 Plt Morphology Comment Normal (NORMAL) 02/12/21 06:46 RBC Morphology Abnormal (NORMAL) 02/12/21 06:46 Anisocytosis Slight A 02/12/21 06:46 Ovalocytes Present 02/12/21 06:46 Alex Cells Present 01/31/21 04:45 D-Dimer 2.86 ug/ml (0.0-0.57) H* 02/12/21 06:46 Sample Site Rrad 02/12/21 04:40 ABG pH 7.200 (7.35-7.45) L 02/12/21 04:40 ABG pCO2 73.0 mmHg (35.0-45.0) H* 02/12/21 04:40 ABG pO2 75.0 mmHg (80.0-100.0) L 02/12/21 04:40 ABG HCO3 28.5 mmol/L (22-26) H 02/12/21 04:40 ABG O2 Saturation 91.0 % (90-100) 02/12/21 04:40 ABG Base Excess -1.1 mmol/L (-2.0-2.0) 02/12/21 04:40 Francis Test Pos 02/12/21 04:40 A-a Gradient 547.0 mmHg 02/12/21 04:40 FiO2 100.0 02/12/21 04:40 Blood Gas Comments Kimberley well ms 02/12/21 04:40 Sodium 136 mmol/L (136-145) 02/12/21 06:46 Corrected Sodium 140 mmol/L (136-145) 02/12/21 06:46 Potassium 5.5 mmol/L (3.5-5.1) H 02/12/21 06:46 Chloride 102 mmol/L (98-107) 02/12/21 06:46 Carbon Dioxide 25.7 mmol/L (21-32) 02/12/21 06:46 BUN 69 mg/dL (7-18) H 02/12/21 06:46 Creatinine 3.17 mg/dL (0.70-1.30) H 02/12/21 06:46 Est GFR (MDRD) Af Amer 25 (>60) L 02/12/21 06:46 Est GFR (MDRD) Non-Af 21 (>60) L 02/12/21 06:46 Glucose 248 mg/dL (65-99) H 02/12/21 06:46 Lactic Acid 1.8 mmol/L (0.4-2.0) 01/31/21 04:45 Calcium 7.0 mg/dL (8.5-10.1) L 02/12/21 06:46 Corrected Calcium 8.8 mg/dL (8.5-10.1) 02/12/21 06:46 Magnesium 2.4 mg/dL (1.7-2.9) 02/07/21 06:40 Ferritin 3928 ng/mL (26-388) H 01/26/21 07:56 Total Bilirubin 2.90 mg/dL (0.2-1.0) H 02/12/21 06:46 AST > 69067 Units/L (15-37) H 02/12/21 06:46 ALT > 71943 Units/L (12-78) H 02/12/21 06:46 Alkaline Phosphatase 124 Units/L (46-116) H 02/12/21 06:46 Creatine Kinase 144 Units/L (39-308) 02/09/21 02:05 CK-MB (CK-2) 6.3 ng/mL (0-4.0) H* 02/09/21 02:05 CK/CKMB % Calc 4.4 % (<4) 02/09/21 02:05 Troponin I 0.05 ng/mL (0-1.5) 02/09/21 02:05 C-Reactive Protein 44.00 mg/L (0-3.0) H 02/12/21 06:46 B-Natriuretic Peptide 264 pg/mL (0-79) H 02/12/21 06:46 Total Protein 4.5 g/dL (6.4-8.2) L 02/12/21 06:46 Albumin 1.8 g/dL (3.4-5.0) L 02/12/21 06:46 Globulin 2.7 g/dL (2.5-4.5) 02/12/21 06:46 Albumin/Globulin Ratio 0.7 Ratio (1.1-2.1) L 02/12/21 06:46 Specimen Type Catherized urine 02/06/21 09:30 Urine Color Yellow (YELLOW) 02/06/21 09:30 Urine Appearance Clear (CLEAR) 02/06/21 09:30 Urine pH 7.0 (5.0 - 8.0) 02/06/21 09:30 Ur Specific [place] 1.010 (1.000-1.030) 02/06/21 09:30 Urine Protein 1+ (NEGATIVE) 02/06/21 09:30 Urine Glucose (UA) Negative (NEGATIVE) 02/06/21 09:30 Urine Ketones Negative (NEGATIVE) 02/06/21 09:30 Urine Occult Blood 2+ (NEGATIVE) 02/06/21 09:30 Urine Nitrite Negative (NEGATIVE) 02/06/21 09:30 Urine Bilirubin Negative (NEGATIVE) 02/06/21 09:30 Urine Urobilinogen Normal (NORMAL) 02/06/21 09:30 Ur Leukocyte Esterase Negative (NEGATIVE) 02/06/21 09:30 Urine RBC 3-5 /HPF (0-3) A 02/06/21 09:30 Urine WBC 0-2 /HPF (0-5) 02/06/21 09:30 Ur Squamous Epith Cells Rare /HPF (NEGATIVE) 02/06/21 09:30 Urine Bacteria Trace /HPF (NEGATIVE) 02/06/21 09:30 Ur Culture Indicated? No/not indicated 02/06/21 09:30 Vancomycin Trough 22.9 ug/mL (15-20) H* 02/07/21 14:33 SARS CoV-2 RNA Rapid MAGED Positive (NEGATIVE) A 01/27/21 10:27 - Plan (1) Pneumonia due to COVID-19 virus Status: Acute Plan: MECHANICAL VENT. IV ATBX, SOLU MEDROL. IV HYDRATION. STRICT I&OS, CARDIAC MONITORING. AM, ABG, CXR (2) Hypoxia Status: Acute (3) Pneumothorax Status: Resolved Qualifiers: Encounter type: initial encounter Plan: CHEST TUBE, CONTINUE TO MONITOR
[2021-02-12] MEDS: LIPITOR TAB 20 MG PO SCH (21:19)
[2021-02-12] MEDS: COLACE CAP 100 MG PO SCH (21:19)
[2021-02-12] MEDS: REQUIP PO SCH (21:20)
[2021-02-12] MEDS: MILK OF MAGNESIA PO SCH (21:20)
[2021-02-12] MEDS ORDERED: LACRI-LUBE S.O.P. ONE (22:40)
[2021-02-13] MEDS: LACRI-LUBE S.O.P. AFFEYE PRN ×2 (00:06→03:03)
[2021-02-13] MEDS: LEVOPHED INJ 8 MG in D5W 250 ML IV 242 ML IV PRN (00:06)
[2021-02-13] MEDS: DIPRIVAN PREMIX 1 GRAM IV 1,000 MG/100 ML VIAL IV PRN ×2 (01:42→06:36)
[2021-02-13] MEDS: SOLU-Medrol 40 MG VIAL IVP SCH ×2 (03:03→09:17)
[2021-02-13] MEDS: VOLTAREN 1 % GEL MULTI DOSE TUBE TOP SCH (05:11)
[2021-02-13] MEDS: ZOSYN VIAL 3.375 GRAMS 3.375 G in NS 50 ML IV + SPIKE MINIBAG* 50 ML IV SCH (05:11)
[2021-02-13] MEDS: LR IV SCH ×2 (05:11)
[2021-02-13] MEDS: SODIUM BICARBONATE IV SCH ×2 (05:11)
[2021-02-13 05:37] LABS: BASOPHILS # (AUTO) 0.2 X10^3/uL (0.0-0.1); BASOPHILS % (AUTO) 0.8 % (0.2-1.0); EOSINOPHILS # (AUTO) 0.2 x10^3/uL (0.0-0.2); EOSINOPHILS % (AUTO) 0.7 % (0.9-2.9); HEMATOCRIT 25.6 % (42.0-54.0); HEMOGLOBIN 8.8 g/dL (13.5-18.0); LYMPHOCYTES # (AUTO) 0.4 X10^3/uL (1.3-2.9); LYMPHOCYTES % (AUTO) 1.4 % (21.0-51.0); MEAN CORPUSCULAR HEMOGLOBIN 31.7 pg (27.0-34.0); MEAN CORPUSCULAR HGB CONC 34.4 g/dL (33.0-35.0); MEAN CORPUSCULAR VOLUME 92.2 fL (80.0-100.0); MEAN PLATELET VOLUME 11.8 fL (7.4-11.0); MONOCYTES # (AUTO) 0.1 x10^3/uL (0.3-0.8); MONOCYTES % (AUTO) 0.4 % (0.0-13.0); NEUTROPHILS # (AUTO) 26.5 x10^3/uL (2.2-4.8); NEUTROPHILS % (AUTO) 96.7 % (42.0-75.0); PLATELET COUNT 43 X10^3/uL (150.0-450.0); RED BLOOD COUNT 2.78 X10^6/uL (4.7-6.0); RED CELL DISTRIBUTION WIDTH 16.8 % (11.6-16.5); WHITE BLOOD COUNT 27.4 X10^3/uL (3.6-10.0)
[2021-02-13 06:07] LABS: ABG BASE EXCESS -9.2 mmol/L (-2.0-2.0); ABG HCO3 21.5 mmol/L (22-26)
[2021-02-13 06:08] LABS: ABG ALLEN TEST POS
[2021-02-13 06:11] LABS: BAND NEUTROPHILS % 4 % (0-10); METAMYELOCYTES % 3; MYELOCYTES % 1
[2021-02-13 06:12] LABS: PLATELET MORPHOLOGY COMMENT NORMAL (NORMAL)
[2021-02-13 06:16] LABS: ANISOCYTOSIS SLIGHT; HYPOCHROMASIA SLIGHT; OVALOCYTES PRESENT; SMUDGE CELLS FEW; TEAR DROP CELLS PRESENT
[2021-02-13 06:53] LABS: ALBUMIN 1.6 g/dL (3.4-5.0); CALCIUM 6.6 mg/dL (8.5-10.1); CARBON DIOXIDE 21.7 mmol/L (21-32); COR CA(FOR HYPOALB) 8.5 mg/dL (8.5-10.1); CREATININE 4.92 mg/dL (0.70-1.30); TOTAL PROTEIN 4.3 g/dL (6.4-8.2)
--- NOTE | 2021-02-13 07:29 | RAD ---
HISTORYSOBSTUDYCHEST, 1 [id number]/26/2021.TECHNIQUEAP view of the chestFINDINGSET tube in good position. Right-sided thoracostomy tube in stable position. Cardiac and mediastinal contours are within normal limits. No significant change in bilateral airspace and interstitial opacities. Stable tiny right apical pneumothorax. Stable severe subcutaneous emphysema in the neck and chest with presumed pneumomediastinum.IMPRESSIONNo significant change. Tiny right apical pneumothorax.Electronically signed by: Bandar Camejo (Feb 13, 2021 07:28:17)
[2021-02-13] MEDS ORDERED: NS 500 ML IV 500 ML IV ONE (07:41)
[2021-02-13] MEDS: AFRIN NASAL SPRAY SCH (08:10)
[2021-02-13] MEDS: VITAMIN D3 125 mcg (5,000 UNITS) PO SCH (08:13)
[2021-02-13] MEDS: NORVASC TAB 5 MG PO SCH (08:13)
[2021-02-13] MEDS: BROVANA IN SCH (08:55)
[2021-02-13] MEDS: PULMICORT NEB TX 0.5 MG NEB SCH (08:55)
[2021-02-13] MEDS: VANCOMYCIN IV *PREMIX 1.25 G/250 ML BAG 1.25 G/250 ML PIGGYBACK IV SCH (09:17)
[2021-02-13] MEDS: PROTONIX INJ 40 MG VIAL IVP SCH (09:17)
[2021-02-13 10:25] VITALS: BP 81/53
[2021-02-15] MEDS ORDERED: PHARMACY COMMENT IV NR (08:30)
== END 2021-02-13 12:24 | disposition expired | DRG 208 ==
LOC: ER 08:13 → MED/SURG 11:54 → ICU 01-27 11:46
PROVIDERS: ADMIT Internal Medicine; ATTEND Internal Medicine
DX: D65 Disseminated intravascular coagulation [defibrination syndrome]; I95.89 Other hypotension; M06.80 Other specified rheumatoid arthritis, unspecified site; I10 Essential (primary) hypertension; R26.89 Other abnormalities of gait and mobility; R06.02 Shortness of breath; Z66 Do not resuscitate; R94.31 Abnormal electrocardiogram [ECG] [EKG]; J12.82 Pneumonia due to coronavirus disease 2019; J96.01 Acute respiratory failure with hypoxia; J15.0 Pneumonia due to Klebsiella pneumoniae; U07.1 COVID-19; R07.89 Other chest pain